=== PATIENT | female | born 1975 | race Caucasian/White ===

== ENCOUNTER 2017-05-25 10:47 | Inpatient (IN) | payer BC ==
[~2017-05-25] VITALS: Ht 175.3 cm; Wt 95.8 kg
[2017-05-25] VITALS (13 sets, daily range): BP systolic 95–121; BP diastolic 50–74; PULSE 66–80; RESP 12–23; TEMP 98.1; Ht 175.3 cm; Wt 95.8 kg
[~2017-05-25 10:47] MED LIST: NITR-58 PO
[2017-05-25] MEDS ORDERED: METOCLOPRAMIDE 10 MG INJ IV STA (11:24)
[2017-05-25] MEDS ORDERED: SOD CHLORIDE 0.9% 1,000 ML IV STA (11:24)
[2017-05-25] MEDS ORDERED: morphine 4 MG/ML VIAL IV STA (11:24)
[2017-05-25] MEDS ORDERED: DIPHENHYDRAMINE 50 MG INJ IV ONE (11:30)
--- NOTE | 2017-05-25 11:46 | ERD ---
ER Documentation Chief Complaint Chief Complaint headache x 2 days, ibuprofen 800mg about an hour ago HPI 41 year old female comes to the emergency room with a headache for 2 weeks, and worsening over the last 2 days. Patient describes a throbbing headache that is moderate to severe, unilateral right side. He states that she has had headaches in the past but this is much more severe. She also states that she was drinking a lot of caffeine and then she stopped drinking caffeinated beverages about 2 weeks ago and this is when the headache started. The patient states ibuprofen seems to help but has not improved very much. She denies any fevers, chills, vomiting. ROS All systems reviewed and are negative except as per history of present illness. Medications Home Meds Active Scripts Nitrofurantoin Monohyd Macrocr* (Macrobid*) 100 Mg Capsr, 100 MG PO BID for 7 Days, CAP Prov:BRANDON LEOS PA-C 02/03/16 Reported Medications [None] No Conflict Check 03/31/12 Allergies Allergies: Coded Allergies: No Known Allergy (Unverified , 02/03/16) PMhx/Soc History of Surgery: No Anesthesia Reaction: No Hx Neurological Disorder: No Hx Respiratory Disorders: No Hx Cardiac Disorders: No Hx Psychiatric Problems: No Hx Miscellaneous Medical Probl: No Hx Alcohol Use: No Hx Substance Use: No Hx Tobacco Use: No Smoking Status: Never smoker Physical Exam Vitals Vital Signs Date Time Temp Pulse Resp B/P Pulse Ox O2 Delivery O2 Flow Rate FiO2 05/25/17 10:50 98.2 77 18 146/84 100 Physical Exam General: Well-developed, well-nourished. The patient appears in no acute distress. HEENT: Head is normocephalic, atraumatic. No scleral icterus. Pupils are equal , round, and reactive. Oral mucous membranes are moist. No pharyngeal erythema. Neck: Supple. Nontender. Lungs: Clear to auscultation. Normal air movement. Heart: Regular rate and rhythm. S1 and S2 are normal. No murmurs, gallops, or rubs. Abdomen: Soft, nontender, nondistended. Bowel sounds are normoactive. Extremities: No clubbing or cyanosis. Normal pulses. Moving extremities x 4. No weakness. Neuro: M/S: Alert and oriented Face: EOMI, CN II-XII grossly intact Motor: Normal strength throughout Sensation: Normal sensation throughout Speech: Normal Cerebel: Normal coordination Normal gait Normal finger to nose DTR: 2+ and symmetric upper/lower extremities Skin: Normal turgor. No rash or lesions. Results 24 hrs Current Medications Medications (Trade) Dose Ordered Sig/Kallie Route PRN Reason Start Time Stop Time Status Last Admin Dose Admin Sodium Chloride (NS) 1,000 ml @ 1,000 mls/hr Q1H STAT IV 05/25/17 11:24 05/25/17 12:23 DC 05/25/17 12:05 Metoclopramide HCl (Reglan) 10 mg ONCE STAT IV 05/25/17 11:24 05/25/17 11:29 DC 05/25/17 12:05 Morphine Sulfate (morphine) 4 mg ONCE STAT IV 05/25/17 11:24 05/25/17 11:29 DC 05/25/17 12:05 Diphenhydramine HCl (Benadryl) 12.5 mg ONCE ONCE IV 05/25/17 11:30 05/25/17 11:31 DC 05/25/17 12:05 DIAGNOSTIC IMAGING REPORT Patient: DOROTA MARAVILLA : 1975 Age: 41 Sex: F MR #: [id number] DOS: 05/25/17 1124 Ordering MD: LEANNE GRAFF PA-C Location: [facility] Room/Bed: PROCEDURE: CT Brain without contrast. CLINICAL INDICATION: Headaches. TECHNIQUE: A CT of the brain was performed on multidetector high-resolution CT scanner utilizing axial sections from the skull base through the vertex without contrast. One or more of the following dose reduction techniques were used: Automated exposure control, Adjustment of the mA and/or kV according to patient size, and/or use of iterative reconstruction technique. DICOM images are available. DOSE: CTDI = 45 mGy and the DLP = 720 mGy-cm. COMPARISON: None available FINDINGS: 5.7 x 4.0 ill defined right parietal parenchymal lesion with marked right posterior frontal, parietal and right posterior temporal vasogenic edema. Ill- defined hypoattenuation extends to the right thalamus and corpus callosum. There is resulting 8 millimeters leftward midline shift. There is compression of the right lateral ventricle and third ventricle. No significant opacification of the visualized paranasal sinuses or mastoids. IMPRESSION: 5.7 centimeter ill-defined right parietal lesion with marked surrounding vasogenic edema and 8 mm leftward midline shift. Differential considerations include brain mass or brain abscess. Recommend MRI brain with and without contrast for further evaluation. A call report was made to LULA BRIGHT, at 05/25/2017 12:16:20 PM. RPTAT: AA .Vini Ribeiro MD, MD Date Time Electronically viewed and signed by .Vini Ribeiro MD, on 05/25/2017 12:17 .T/ CC: LEANNE GRAFF PA-C Procedures/MDM -year-old female presents with a headache for 2 weeks, she states that has become severe over the last [address] scan of the head shows a 5.7 cm area on the right parietal region showing a mass versus to abscess with midline shift. This patient's CT scan was discussed with Dr. Payne, who will make arrangements for admission and neurosurgery consultation. Labs, MRI were ordered. Departure Diagnosis: Primary Impression: Headache Condition: Serious LEANNE GRAFF PA-C May 25, 2017 11:46
--- NOTE | 2017-05-25 12:17 | RADRPT ---
PROCEDURE: CT Brain without contrast. CLINICAL INDICATION: Headaches. TECHNIQUE: A CT of the brain was performed on multidetector high-resolution CT scanner utilizing a xial sections from the skull base through the vertex without contrast. One or more of the following dose reduction techniques were used: Automated exposure control, Adjustment of the mA and/or kV acc ording to patient size, and/or use of iterative reconstruction technique. DICOM images are available . DOSE: CTDI = 45 mGy and the DLP = 720 mGy-cm. COMPARISON: None available FINDINGS: 5.7 x 4.0 ill defined right parietal parenchymal lesion with marked right posterior frontal, parieta l and right posterior temporal vasogenic edema. Ill-defined hypoattenuation extends to the right nazario lamus and corpus callosum. There is resulting 8 millimeters leftward midline shift. There is mervat cayla of the right lateral ventricle and third ventricle. No significant opacification of the visuali zed paranasal sinuses or mastoids. IMPRESSION: 5.7 centimeter ill-defined right parietal lesion with marked surrounding vasogenic edema and 8 mm le ftward midline shift. Differential considerations include brain mass or brain abscess. Recommend MRI brain with and without contrast for further evaluation. A call report was made to LULA BRIGHT at 05/25/2017 12:16:20 PM. RPTAT: AA .Vini Ribeiro MD, MD Date Time Electronically viewed and signed by .Vini Ribeiro MD, MD on 05/25/2017 12:17 .T/
[2017-05-25] MEDS ORDERED: HYDROmorphONE 1 MG/ML SYG IV STA (12:43)
[2017-05-25 12:54] LABS: BASOPHIL # 0.1 10^3/ul (0.0-0.1); BASOPHILS % 0.4 % (0.0-2.0); EOSINOPHILS # 0.1 10^3/ul (0.0-0.5); EOSINOPHILS % 0.5 % (0.0-7.0); HEMATOCRIT 33.5 % (37.0-47.0); HEMOGLOBIN 10.7 g/dl (12.0-16.0); LYMPHOCYTES # 1.1 10^3/ul (0.8-2.9); LYMPHOCYTES % 7.3 % (15.0-51.0); MEAN CORPUSCULAR HEMOGLOBIN 29.9 pg (29.0-33.0); MEAN CORPUSCULAR HGB CONC 31.9 g/dl (32.0-37.0); MEAN CORPUSCULAR VOLUME 93.6 fl (82.0-101.0); MEAN PLATELET VOLUME 9.4 fl (7.4-10.4); MONOCYTE # 0.9 10^3/ul (0.3-0.9); MONOCYTES % 6.1 % (0.0-11.0); NEUTROPHIL # 12.9 10^3/ul (1.6-7.5); NEUTROPHILS % 85.2 % (39.0-77.0); PLATELET COUNT 435 10^3/UL (140-415); RED BLOOD COUNT 3.58 10^6/ul (4.20-5.40); RED CELL DISTRIBUTION WIDTH 11.6 % (11.5-14.5); WHITE BLOOD COUNT 15.1 10^3/ul (4.8-10.8)
[2017-05-25 13:03] LABS: ADD UMIC YES; UR ASCORBIC ACID NEGATIVE (NEGATIVE); UR BACTERIA FEW /HPF (NONE SEEN); UR BILIRUBIN (Dip) NEGATIVE (NEGATIVE); UR BLOOD (Dip) 2+ mg/dL (NEGATIVE); UR CLARITY SLIGHTLY CLOUDY (CLEAR); UR COLOR YELLOW (YELLOW); UR GLUCOSE (Dip) NEGATIVE (NEGATIVE); UR KETONES (Dip) NEGATIVE (NEGATIVE); UR LEUKOCYTE ESTERASE (Dip) 1+ Leu/ul (NEGATIVE); UR MUCUS FEW /HPF (NONE SEEN); UR NITRITE (Dip) NEGATIVE (NEGATIVE); UR RBC 3 /HPF (0-5); UR SPECIFIC GRAVITY (Dip) 1.016 (1.003-1.030); UR SQUAMOUS EPITHELIAL CELL FEW /HPF (FEW); UR TOTAL PROTEIN (Dip) NEGATIVE (NEGATIVE); UR UROBILINOGEN (Dip) NEGATIVE (NEGATIVE)
[2017-05-25 13:13] LABS: INR 1.02; PROTIME 13.4 Sec (12.2-14.2)
[2017-05-25 13:14] LABS: PARTIAL THROMBOPLASTIN TIME 37.6 Sec (25.0-35.0)
[2017-05-25 13:15] LABS: ALBUMIN/GLOBULIN RATIO 1.11; BILIRUBIN,INDIRECT 0.3 mg/dl (0-1.1); BILIRUBIN,TOTAL 0.3 mg/dl (0.2-1.3); CALCIUM 8.6 mg/dl (8.4-10.2); CREATININE 0.74 mg/dl (0.44-1.00); POTASSIUM 4.1 mmol/L (3.5-5.1); TOTAL PROTEIN 7.6 g/dl (6.1-8.1)
[2017-05-25] MEDS ORDERED: LEVETIRACETAM 500 MG (PMX) 100 ML IVPB ONE (13:30)
[2017-05-25] MEDS ORDERED: ONDANSETRON 4 MG INJ IV STA (15:38)
[2017-05-25] MEDS ORDERED: ALBUTEROL/IPRATROPIUM (NEB) 3 ML AMP HHN PRN (16:00)
[2017-05-25] MEDS ORDERED: hydrALAzine 20 MG INJ IV PRN (16:00)
[2017-05-25] MEDS ORDERED: TRIMETHOBENZAMIDE 100 MG/ML VIAL IM PRN (16:00)
[2017-05-25] MEDS ORDERED: HYDROCODONE/APAP (5/325) TAB PO PRN (16:00)
[2017-05-25] MEDS ORDERED: LORAZEPAM 2 MG INJ IV PRN (16:00)
[2017-05-25] MEDS ORDERED: NITROGLYCERIN (SL) 0.4 MG TAB SL PRN (16:00)
[2017-05-25] MEDS ORDERED: ONDANSETRON 4 MG INJ IV PRN (16:00)
[2017-05-25] MEDS ORDERED: morphine 2 MG INJ IV PRN (16:00)
[2017-05-25] MEDS ORDERED: NA PHOSPHATE/BIPHOS 133 ML ENEMA PR PRN (16:00)
[2017-05-25] MEDS ORDERED: ACETAMINOPHEN 325 MG TAB PO PRN (16:00)
[2017-05-25] MEDS ORDERED: NACL 0.9% 3 ML SYG IV SCH (16:00)
--- NOTE | 2017-05-25 17:01 | HP ---
DATE OF ADMISSION: 05/25/2017 CHIEF COMPLAINT: Headache and vomiting. HISTORY OF PRESENT ILLNESS: A 41-year-old female, no significant past medical history, who presents with headache symptoms. She says her symptoms she believes began about 2 weeks ago when she says she took too much caffeine and felt "weird". Although she noticed some migraine-type of headache symptoms occurring more prominently over the last 2 days, although she denies history of migraines. She did have one episode of vomiting, nonbilious, nonbloody, today. She had been taking ibuprofen for the last few days with no relief in her symptoms, so she decided to come into the ER. She denied any night sweats. She did say she has been having some decreased appetite feeling for the last 2 weeks but has been eating her meals regularly. She does state also 15 pounds weight loss in the last month, partially intentional as she has been trying to lose weight. Denied any abdominal pain. She did have some subjective fevers and chills, as well, but no diarrhea or constipation. No upper or lower GI bleeding. No chest pain or shortness of breath. When she came in, she had imaging study of the brain that did show a 5.7 cm ill-defined right parietal lesion with marked surrounding vasogenic edema and 8 mm leftward midline shift. With differential considerations including brain mass or brain abscess, an MRI of the brain was ordered and the ER team did call the neurosurgeon who came and evaluated the patient, as well. PAST MEDICAL HISTORY: As above. ALLERGIES: NO KNOWN DRUG ALLERGIES. MEDICATIONS: Ibuprofen p.r.n. lately. PAST SURGICAL HISTORY: None. SOCIAL HISTORY: Negative for smoking, drinking, IV drug abuse. FAMILY HISTORY: Mother had mitral valve prolapse. Father had some kind of colon resection, she is not sure why. Her paternal grandmother did have a history of colon cancer. She has no siblings. PHYSICAL EXAMINATION: VITAL SIGNS: Stable. GENERAL: Shows the patient lying in bed, answers questions appropriately, no acute distress. HEENT: Pupils equal, round, react to light. Extraocular muscles intact. NECK: Supple. No thyromegaly. LUNGS: Clear to auscultation bilaterally. CARDIOVASCULAR: S1, S2 heard. No rubs, gallops. ABDOMEN: Soft, nontender, nondistended. Normal bowel sounds. No rebound or guarding. MUSCULOSKELETAL: No lower extremity edema bilaterally. NEUROLOGIC: No focal deficits. LABORATORY DATA: WBC 15.1, hemoglobin 10.7, hematocrit 33.5, platelets 435. Comprehensive metabolic panel is normal. UA shows 1+ leukocyte esterase positive. Coags are normal. We mentioned the head CT results. ASSESSMENT/PLAN: A 41-year-old female coming in with headache symptoms getting worse over the last 2 days and also vomiting symptoms with brain mass found on imaging studies. 1. Headache and vomiting, again likely secondary to the patient's imaging studies of the brain showing brain mass, unclear what this could be at this time. Cannot rule out abscess versus mass such as malignancy, possibly. Again admit patient to the intensive care unit, do neuro checks every 4 hours, avoid anticoagulants for now. Check TSH, A1c, lipid panel. Follow up recommendations from neurosurgery team. They have already evaluated the patient and put the patient on Decadron IV q.6 hours and also Keppra, as well. The patient not having any signs of any seizure activity. Plan is for possible craniotomy in the next 24-48 hours, as well, to further investigate what this could. Do IV fluids, as well. 2. Leukocytosis. Again, patient having some subjective fevers at home. UA is positive for leukocyte esterase, so signs of UTI. Will put the patient on Rocephin for now. 3. Nausea and vomiting, again likely secondary to number 1. Antiemetics, as well. 4. Gastrointestinal prophylaxis. Pepcid. 5. Deep vein thrombosis prophylaxis. SCDs. Dictated By: Jayme Marroquin MD /trini/lainey /Document#: [id number]
[2017-05-25] MEDS: DEXAMETHASONE 4 MG/ML 1 ML INJ IV SCH ×2 (17:27→23:35)
[2017-05-25] MEDS: CEFTRIAXONE 1 GM/50 ML (PMX) 50 ML IVPB SCH (17:28)
[2017-05-25] MEDS: HYDROmorphONE 1 MG/ML SYG IV PRN (17:57)
--- NOTE | 2017-05-25 19:39 | RADRPT ---
PROCEDURE: MR Brain with and without contrast. CLINICAL INDICATION: Headache, abnormal CT examination TECHNIQUE: An MRI of the brain was performed utilizing the following sequences: Axial T1, axial T 2, axial FLAIR, coronal gradient echo, sagittal T1 FLAIR, diffusion weighted imaging, and ADC map. P ostcontrast axial and coronal images were obtained after administration of 10 cc of Magnevist. COMPARISON: CT of the same day FINDINGS: There is a heterogeneous mass overlying or within the right posterior parietal lobe and occipital lo be, measuring up to 5.9 x 5.0 by 3.4 cm CC by AP by transverse. There is septated narrowing internal enhancement and peripheral enhancement. There is mild diffusion restriction involving enhancing por tions of the lesion. There is questionable associated minimal dural thickening and enhancement invol ving the posterior right falx. There is adjacent T2 hyperintensity and effacement of sulci involving overlying right parietal lobe, occipital lobe, temporal lobe, and posterior frontal lobe, with exte nsion slightly across midline within the splenium of the corpus callosum. This appears consistent wi th vasogenic edema. There is partial effacement of the right lateral ventricle, and midline shift to the left measuring up to 9 mm. There is no intracranial hemorrhage. There is no evidence of acute infarct The sella and suprasellar cistern appear within normal limits. The brainstem and posterior fossa ar e normal in configuration. The orbital soft tissue contents are unremarkable. Paranasal sinuses are clear. IMPRESSION: 1. Complex heterogeneous mass within or overlying the right parietal lobe and occipital lobe, up to 5.9 x 5.0 x 3.4 cm. 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 A complex extra-axial mass such as an atypical appearing meningioma is otherwise possible . 2. Extensive adjacent vasogenic edema, and/or infiltrating tumor, involving the right parietal lobe , occipital lobe, temporal lobe, and frontal lobe, with slight extension to the splenium of the [place] callosum across midline. 3. Midline shift to the left, 9 mm. Partial effacement of the posterior right lateral ventricle. RPTAT: HBST .Sunny Barton MD, MD Date Time Electronically viewed and signed by .Sunny Barton MD, on 05/25/2017 15:50 .T/
[2017-05-25] MEDS: FAMOTIDINE 20 MG INJ IV SCH (21:00)
[2017-05-25] MEDS: LEVETIRACETAM 500 MG (PMX) 100 ML IVPB SCH (21:56)
[2017-05-25] MEDS: SOD CHLORIDE 0.45% 1,000 ML IV SCH (21:57)
[2017-05-26] VITALS (31 sets, daily range): BP systolic 85–132; BP diastolic 44–81; PULSE 60–94; RESP 11–32
[2017-05-26] MEDS: DEXAMETHASONE 4 MG/ML 1 ML INJ IV SCH ×4 (06:07→23:40)
[2017-05-26] MEDS: SOD CHLORIDE 0.45% 1,000 ML IV SCH ×2 (06:07→11:36)
[2017-05-26] MEDS: HYDROmorphONE 1 MG/ML SYG IV PRN ×2 (06:08→06:55)
[2017-05-26 06:09] LABS: BASOPHILS % 0.1 % (0.0-2.0); HEMOGLOBIN 12.3 g/dl (12.0-16.0); LYMPHOCYTES # 0.9 10^3/ul (0.8-2.9); LYMPHOCYTES % 5.2 % (15.0-51.0); MEAN CORPUSCULAR HEMOGLOBIN 29.6 pg (29.0-33.0); MEAN CORPUSCULAR HGB CONC 32.4 g/dl (32.0-37.0); MEAN CORPUSCULAR VOLUME 91.3 fl (82.0-101.0); MEAN PLATELET VOLUME 9.2 fl (7.4-10.4); MONOCYTE # 0.2 10^3/ul (0.3-0.9); MONOCYTES % 1.4 % (0.0-11.0); NEUTROPHIL # 15.6 10^3/ul (1.6-7.5); NEUTROPHILS % 92.8 % (39.0-77.0); PLATELET COUNT 510 10^3/UL (140-415); RED BLOOD COUNT 4.16 10^6/ul (4.20-5.40); RED CELL DISTRIBUTION WIDTH 11.4 % (11.5-14.5); WHITE BLOOD COUNT 16.8 10^3/ul (4.8-10.8)
[2017-05-26 06:42] LABS: CALCIUM 9.7 mg/dl (8.4-10.2); CREATININE 0.62 mg/dl (0.44-1.00); MAGNESIUM 2.1 mg/dl (1.7-2.5); PHOSPHORUS 3.7 mg/dl (2.5-4.9); POTASSIUM 5.3 mmol/L (3.5-5.1)
[2017-05-26 07:28] LABS: THYROID STIMULATING HORMONE 0.19 MIU/L (0.465-4.680)
[2017-05-26] MEDS: FAMOTIDINE 20 MG INJ IV SCH ×2 (08:45→21:00)
[2017-05-26] MEDS: LEVETIRACETAM 500 MG (PMX) 100 ML IVPB SCH ×2 (08:46→21:54)
[2017-05-26] MEDS ORDERED: FAMOTIDINE 20 MG INJ IV SCH (09:00)
--- NOTE | 2017-05-26 11:44 | PN ---
Date/Time of Note Date/Time of Note DATE: 05/26/17 TIME: 11:39 Assessment/Plan VTE Prophylaxis VTE Prophylaxis Intervention: SCD's Lines/Catheters IV Catheter Type (from [facility]): Peripheral IV Assessment/Plan Chief Complaint/Hosp Course ASSESSMENT/PLAN: A 41-year-old female coming in with headache symptoms getting worse over the last 2 days and also vomiting symptoms with brain mass found on imaging studies. 1. Headache and vomiting - again likely secondary to the patient's imaging studies of the brain showing brain mass, unclear what this could be at this time. Cannot rule out abscess versus mass such as malignancy, possibly. -Continue care in intensive care unit, do neuro checks every 4 hours, avoid anticoagulants for now. Follow-up TSH, A1c, lipid panel. -Follow up recommendations from neurosurgery team. -Decadron IV q.6 hours and also Keppra, as well. - For likely craniotomy in the next 24 hours 2. Leukocytosis. Again, patient having some subjective fevers at home. UA is positive for leukocyte esterase, so signs of UTI. -2 new Rocephin for now. 3. Nausea and vomiting, again likely secondary to number 1. Antiemetics, as well. 4. Gastrointestinal prophylaxis. Pepcid. 5. Deep vein thrombosis prophylaxis. SCDs. Critical care time spent on patient care today equals 45 minutes. Problems: Subjective 24 Hr Interval Summary Free Text/Dictation Patient seen by neurosurgery team, scheduled for craniotomy tomorrow morning. No headache or vomiting symptoms presently. MRI of the brain performed yesterday as well. Exam/Review of Systems Vital Signs Vitals Vital Signs Date Time Temp Pulse Resp B/P Pulse Ox O2 Delivery O2 Flow Rate FiO2 05/26/17 10:00 86 18 99/62 100 Room Air 05/26/17 08:00 98.1 Intake and Output 05/25/17 05/25/17 05/26/17 14:59 22:59 06:59 Intake Total 690 ml 625 ml Balance 690 ml 625 ml Exam GENERAL: Shows the patient lying in bed, answers questions appropriately, no acute distress. HEENT: Pupils equal, round, react to light. Extraocular muscles intact. NECK: Supple. No thyromegaly. LUNGS: Clear to auscultation bilaterally. CARDIOVASCULAR: S1, S2 heard. No rubs, gallops. ABDOMEN: Soft, nontender, nondistended. Normal bowel sounds. No rebound or guarding. MUSCULOSKELETAL: No lower extremity edema bilaterally. NEUROLOGIC: No focal deficits. Results Result Diagram: 05/26/17 0547 05/26/17 0547 Results 24 hrs Laboratory Tests Test 05/25/17 12:25 05/25/17 12:30 05/26/17 05:47 White Blood Count 15.1 #H 16.8 H Red Blood Count 3.58 L 4.16 L Hemoglobin 10.7 L 12.3 Hematocrit 33.5 L 38.0 Mean Corpuscular Volume 93.6 91.3 Mean Corpuscular Hemoglobin 29.9 29.6 Mean Corpuscular Hemoglobin Concent 31.9 L 32.4 Red Cell Distribution Width 11.6 11.4 L Platelet Count 435 H 510 H Mean Platelet Volume 9.4 # 9.2 Neutrophils % 85.2 H 92.8 H Lymphocytes % 7.3 L 5.2 L Monocytes % 6.1 1.4 Eosinophils % 0.5 0.0 Basophils % 0.4 0.1 Nucleated Red Blood Cells % 0.0 0.0 Neutrophils # 12.9 H 15.6 H Lymphocytes # 1.1 0.9 Monocytes # 0.9 0.2 L Eosinophils # 0.1 0.0 Basophils # 0.1 0.0 Nucleated Red Blood Cells # 0.0 0.0 Prothrombin Time 13.4 Prothrombin Time Ratio 1.0 INR International Normalized Ratio 1.02 Activated Partial Thromboplast Time 37.6 H Sodium Level 138 143 Potassium Level 4.1 5.3 H Chloride Level 102 101 Carbon Dioxide Level 24 30 Anion Gap 16 17 H Blood Urea Nitrogen 9 9 Creatinine 0.74 0.62 Glucose Level 95 115 Lactic Acid Level 1.1 Calcium Level 8.6 9.7 Total Bilirubin 0.3 Direct Bilirubin 0.00 Indirect Bilirubin 0.3 Aspartate Amino Transf (AST/SGOT) 20 Alanine Aminotransferase (ALT/SGPT) 31 Alkaline Phosphatase 81 Total Protein 7.6 Albumin 4.0 Globulin 3.60 H Albumin/Globulin Ratio 1.11 Free Thyroxine 1.44 Serum HCG, Qualitative NEGATIVE Urine Color YELLOW Urine Clarity SLIGHTLY CLOUDY A Urine pH 5.0 Urine Specific [place] 1.016 Urine Ketones NEGATIVE Urine Nitrite NEGATIVE Urine Bilirubin NEGATIVE Urine Urobilinogen NEGATIVE Urine Leukocyte Esterase 1+ H Urine Microscopic RBC 3 Urine Microscopic WBC 8 H Urine Squamous Epithelial Cells FEW Urine Bacteria FEW A Urine Mucus FEW A Urine Hemoglobin 2+ H Urine Glucose NEGATIVE Urine Total Protein NEGATIVE Hemoglobin A1c 4.6 Phosphorus Level 3.7 Magnesium Level 2.1 Triglycerides Level 48 Cholesterol Level 135 LDL Cholesterol, Calculated 80 HDL Cholesterol 45 Cholesterol/HDL Ratio 3.0 Thyroid Stimulating Hormone (TSH) 0.190 L Medications Medications Current Medications Levetiracetam (Keppra 500 Mg/ 100ml (Pmx)) 100 ml @ 400 mls/hr BID IVPB Last administered on 05/26/17 08:46; Admin Dose 400 MLS/HR; Start 05/25/17 at 21: 00 Dexamethasone (Decadron) 4 mg Q6 IV Last administered on 05/26/17 11:33; Admin Dose 4 MG; Start 05/25/17 at 15:30 Famotidine (Pepcid Iv) 20 mg BID IV ; Start 05/25/17 at 21:00 Ondansetron HCl (Zofran Inj) 8 mg Q6H PRN IV NAUSEA AND/OR VOMITING; Start at 16:00 Acetaminophen (Tylenol Tab) 650 mg Q6H PRN PO PAIN LEVEL 1-3 OR FEVER; Start 05/25/17 at 16:00 Acetaminophen/ Hydrocodone Bitart ([place] (5/325)) 1 tab Q6H PRN PO MODERATE PAIN LEVEL 4-6; Start 05/25/17 at 16:00 Morphine Sulfate (morphine) 2 mg Q4H PRN IV SEVERE PAIN LEVEL 7-10; Start at 16:00 Docusate Sodium (Colace) 100 mg Q12H PRN PO CONSTIPATION; Start 05/25/17 at 16 :00 Magnesium Hydroxide (Milk Of Mag) 30 ml DAILY PRN PO CONSTIPATION; Start 05/25 at 16:00 Sodium Biphosphate/ Sodium Phosphate (Fleet Enema) 133 ml DAILY PRN MA CONSTIPATION; Start 05/25/17 at 16:00 Famotidine 20 mg 20 mg DAILY IV ; Start 05/26/17 at 09:00 Sodium Chloride (1/2 NS) 1,000 ml @ 75 mls/hr [id number] IV Last administered on 05/26/17 11:36; Admin Dose 75 MLS/HR; Start 05/25/17 at 15:46 Lorazepam (Ativan) 0.5 mg Q6H PRN IV ANXIETY; Start 05/25/17 at 16:00 Hydralazine HCl 10 mg 10 mg Q6H PRN IV ELEVATED BLOOD PRESSURE; Start at 16:00 Ceftriaxone Sodium (Rocephin) 50 ml @ 100 mls/hr Q24H IVPB Last administered on 05/25/17 17:28; Admin Dose 100 MLS/HR; Start 05/25/17 at 16:00 Nitroglycerin (Nitroglycerin (Sl Tab) 0.4 Mg) 1 tab Q5M PRN SL ANGINA; Start 05/25/17 at 16:00 Trimethobenzamide HCl (Tigan) 200 mg Q6H PRN IM NAUSEA AND/OR VOMITING; Start 05/25/17 at 16:00 Hydromorphone HCl (Dilaudid) 1 mg Q3 PRN IV PAIN LEVEL 8-10 Last administered on 05/26/17 06:08; Admin Dose 1 MG; Start 05/25/17 at 17:30 SELMA GARNER May 26, 2017 11:44
[2017-05-26] MEDS ORDERED: NA POLYST SULFON 15 GM/60 ML BTL PO ONE (12:00)
[2017-05-26] MEDS: CEFTRIAXONE 1 GM/50 ML (PMX) 50 ML IVPB SCH (16:22)
[2017-05-27] VITALS (39 sets, daily range): BP systolic 96–170; BP diastolic 51–83; PULSE 61–108; RESP 14–27
[2017-05-27] MEDS: DEXAMETHASONE 4 MG/ML 1 ML INJ IV SCH ×3 (05:10→17:04)
[2017-05-27 05:24] LABS: BASOPHILS % 0.2 % (0.0-2.0); HEMATOCRIT 36.7 % (37.0-47.0); HEMOGLOBIN 12.2 g/dl (12.0-16.0); LYMPHOCYTES # 0.9 10^3/ul (0.8-2.9); LYMPHOCYTES % 4.6 % (15.0-51.0); MEAN CORPUSCULAR HEMOGLOBIN 30.3 pg (29.0-33.0); MEAN CORPUSCULAR HGB CONC 33.2 g/dl (32.0-37.0); MEAN CORPUSCULAR VOLUME 91.3 fl (82.0-101.0); MEAN PLATELET VOLUME 9.3 fl (7.4-10.4); MONOCYTE # 0.6 10^3/ul (0.3-0.9); MONOCYTES % 3.1 % (0.0-11.0); NEUTROPHIL # 18.2 10^3/ul (1.6-7.5); NEUTROPHILS % 91.4 % (39.0-77.0); PLATELET COUNT 526 10^3/UL (140-415); RED BLOOD COUNT 4.02 10^6/ul (4.20-5.40); RED CELL DISTRIBUTION WIDTH 11.5 % (11.5-14.5); WHITE BLOOD COUNT 19.9 10^3/ul (4.8-10.8)
[2017-05-27 05:52] LABS: CALCIUM 9.6 mg/dl (8.4-10.2); CREATININE 0.63 mg/dl (0.44-1.00); POTASSIUM 4.2 mmol/L (3.5-5.1)
[2017-05-27] MEDS ORDERED: GELATIN SIZE 100 SPONGE ONE (07:39)
[2017-05-27] MEDS ORDERED: BUPIVACAINE 0.5% (SDV) 30 ML INJ ONE (07:39)
[2017-05-27] MEDS ORDERED: THROMBIN 5000 UNIT VIAL ONE (07:39)
[2017-05-27] MEDS ORDERED: BUPIVACAINE 0.5%/EPI (SDV) 30 ML INJ ONE (07:39)
[2017-05-27] MEDS ORDERED: POLYMYXIN/BACITRACIN 1L IRRIG ONE ×2 (07:40→14:35)
[2017-05-27] MEDS ORDERED: LIDOCAINE 0.5% (MDV) 50 ML INJ ONE (07:40)
[2017-05-27] MEDS: SOD CHLORIDE 0.45% 1,000 ML IV SCH ×3 (07:46→19:57)
[2017-05-27] MEDS ORDERED: MIDAZOLAM 1 MG/ML 2 ML INJ ONE (07:53)
[2017-05-27] MEDS ORDERED: PROPOFOL 20 ML ONE ×3 (07:53→10:28)
[2017-05-27] MEDS ORDERED: ROCURONIUM 50 MG INJ ONE (07:53)
[2017-05-27] MEDS ORDERED: CEFAZOLIN 1 GM INJ ONE ×2 (07:53→14:24)
--- NOTE | 2017-05-27 08:08 | CONS ---
Date/Time of Note Date/Time of Note DATE: 05/25/17 TIME: 1900 Assessment/Plan Assessment/Plan Additional Assessment/Plan Date of consultation: 05/25/2017 Requesting physician: Dr. Sunny Kruse with the emergency department. Consulting service: Neurosurgery This is a 41-year-old female in overall good health who has been having headaches for the past 2 weeks. The patient has also felt some fatigue as well as some nausea. She had 1 episode of vomiting earlier today. 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 The patient denies any loss of consciousness, seizures, convulsions or diplopia. She does however say that she has noticed that her vision has not been as good as it used to be over the past several months and she seems to relate this to the fact that her eyeglasses prescription is changing. The patient has also noticed some weakness of her left upper extremity recently. Past medical history: None Allergies: No known drug allergies Outpatient medications: Ibuprofen Past surgical history: None Review of systems: Please see above for pertinent positives or negatives. She denies chest pain or shortness of breath. Social history: The patient denies smoking tobacco, drinking alcoholic beverages or using illicit or recreational drugs. Physical examination: The patient is seen in the emergency department. She is accompanied by her female coworker. She is awake alert and oriented 4. She appears to be in some distress related to her headache. Her face is symmetric. Her tongue is midline. Extraocular movements are intact. Pupils are equally round and reactive to light. The patient appears to have gross left homonymous hemianopsia. The patient has an obvious left pronator drift. Motor strength is 5 minus out of 5 right upper and lower extremities. Motor strength left upper and lower extremities is 4- out of 5 proximally and distally. Sensation to light touch seems to be grossly normal bilateral upper and lower extremities. Gait testing has been deferred per patient request. Deep tendon reflexes are 2+ bilateral upper and lower extremities. There is some left- sided dysmetria. Her language is fluent. Imaging: The patient has received a CT of the head without contrast that shows right-sided supratentorial cortical effacement and some evidence of cerebral edema with an ill-defined area suspicious for a mass in the right parieto- occipital region. There is no evidence of intracranial hemorrhage noted. Assessment/plan: I have discussed the findings in detail with the patient as well as the emergency room physician, Dr. Kruse. The stereotactic MRI of the brain with and without contrast will be done today at my request for further evaluation. The patient will be started on Decadron 4 mg IV every 6 hours. Once the imaging study is done I will discuss the findings in greater detail with the patient. The patient is being admitted to the ICU. ENRIQUE TEJADA MD May 27, 2017 08:08
--- NOTE | 2017-05-27 08:09 | PN ---
Date/Time of Note Date/Time of Note DATE: 05/26/17 TIME: 1300 Assessment/Plan VTE Prophylaxis VTE Prophylaxis Intervention: ambulation Lines/Catheters IV Catheter Type (from Nrs): Peripheral IV Central line still needed: No Urinary Cath still in place: No Assessment/Plan Assessment/Plan Date of progress note: 05/26/2017 The patient is admitted to the ICU. Overall the patient seems to be feeling better now that she's been started on Decadron and receiving pain medications for her headaches. She seems to be quite anxious. Her neurologic exam seems to be unchanged with left-sided hemiparesis and pronator drift as well as a left homonymous any anopsia as yesterday. She is awake alert and oriented 4. Her language is fluent. The patient's parents live in [place] and I have explained the MRI of the brain findings in great detail with the patient as well as her parents whom the patient has put on the speaker phone. The MRI of the brain with and without contrast shows a large right parietal occipital intraparenchymal heterogeneously enhancing mass by the right parasagittal region that goes to midline. This mass appears to be a highly suspicious for primary brain neoplasm. There is also extensive surrounding vasogenic edema that even seems to somewhat across midline and involve the corpus callosum fibers. I have pointed out to the patient and her family about the patient's current neurologic deficits that can be explained by the above image findings. In order to know what this mass is, the patient will require a right parieto- occipital craniotomy that can be done via stereotactic techniques using the stereotactic MRI that has already been obtained. Once the mass is resected, the pathologists will do various types of stainings on the mass and can then tell us about the specific pathology. I have explained the risks and benefits of the above operation with the risks including bleeding, infection, weakness, numbness, paralysis, blindness, comatose state, bowel or bladder dysfunction, cerebrospinal fluid leak, failure of improvement of symptoms, worsening of the symptoms, need for further surgeries including redo craniotomy for resection of the tumor or CSF diversion such as a RIB SAWYER shunt placement as well as those risks associated with surgery and general anesthesia including pneumonia, deep venous thrombosis, pulmonary embolism, heart attack, stroke and/or . Another option which is not a recommended option would be further observation of the mass and continued treatment with glucocorticoids. The patient and her parents fully understand the above discussion and wish for the patient to proceed with the above surgery. The patient's parents will be flying from [place] later today so that they can accompany the patient for surgery tomorrow. We will try to accommodate her as best as we can. ENRIQUE TEJADA MD May 27, 2017 08:09
[2017-05-27] MEDS ORDERED: ALBUMIN HUMAN 5% 250 ML IV PRN (08:30)
[2017-05-27] MEDS ORDERED: METOCLOPRAMIDE 10 MG INJ IV PRN (08:30)
[2017-05-27] MEDS ORDERED: DIPHENHYDRAMINE 50 MG INJ IV PRN (08:30)
[2017-05-27] MEDS ORDERED: LABETALOL HCL 20MG INJ IV PRN (08:30)
[2017-05-27] MEDS ORDERED: MEPERIDINE 25 MG INJ IV PRN (08:30)
[2017-05-27] MEDS ORDERED: hydrALAzine 20 MG INJ IV PRN (08:30)
[2017-05-27] MEDS ORDERED: morphine 10 MG INJ IV PRN (08:30)
[2017-05-27] MEDS ORDERED: FENTAnyl 50 MCG/ML VIAL IV PRN ×3 (08:30)
[2017-05-27] MEDS ORDERED: EPHEDrine SULFATE 50 MG/5 ML SYG IV PRN (08:30)
[2017-05-27] MEDS ORDERED: morphine 4 MG/ML VIAL IV PRN (08:30)
[2017-05-27] MEDS ORDERED: morphine 2 MG INJ IV PRN (08:30)
[2017-05-27] MEDS ORDERED: ONDANSETRON 4 MG INJ IV PRN ×2 (08:30→22:00)
[2017-05-27] MEDS ORDERED: POVIDONE IODINE 10% 28.4 GM OINT ONE (08:43)
[2017-05-27] MEDS: FAMOTIDINE 20 MG INJ IV SCH ×2 (09:00→21:16)
[2017-05-27] MEDS ORDERED: DEXAMETHASONE 4 MG/ML 1 ML INJ ONE (09:02)
[2017-05-27] MEDS ORDERED: LABETALOL HCL 20MG INJ ONE (09:11)
--- NOTE | 2017-05-27 09:59 | PN ---
Date/Time of Note Date/Time of Note DATE: 05/27/17 TIME: 09:58 Assessment/Plan VTE Prophylaxis VTE Prophylaxis Intervention: SCD's Lines/Catheters IV Catheter Type (from [facility]): Peripheral IV Urinary Cath still in place: No Assessment/Plan Chief Complaint/Hosp Course ASSESSMENT/PLAN: A 41-year-old female coming in with headache symptoms getting worse over the last 2 days and also vomiting symptoms with brain mass found on imaging studies. 1. Headache and vomiting - again likely secondary to the patient's imaging studies of the brain showing brain mass, unclear what this could be at this time. Cannot rule out abscess versus mass such as malignancy. -Continue care in intensive care unit, do neuro checks every 4 hours, avoid anticoagulants for now. Follow-up TSH, A1c, lipid panel. -Follow up recommendations from neurosurgery team. -Decadron IV q.6 hours and also Keppra, as well. -for craniotomy today, follow-up post operation recommendations 2. Leukocytosis -in addition to brain mass, UA is positive for leukocyte esterase, so signs of UTI. -Continue Rocephin for now. 3. Nausea and vomiting, again likely secondary to number 1. Antiemetics, as well. 4. Gastrointestinal prophylaxis. Pepcid. 5. Deep vein thrombosis prophylaxis. SCDs. Critical care time spent on patient care today equals 40 minutes. Problems: Subjective 24 Hr Interval Summary Free Text/Dictation No acute events overnight, presently in OR. Exam/Review of Systems Vital Signs Vitals Vital Signs Date Time Temp Pulse Resp B/P Pulse Ox O2 Delivery O2 Flow Rate FiO2 05/27/17 08:00 70 21 133/83 98 Room Air 05/27/17 00:00 98.6 Intake and Output 05/26/17 05/26/17 05/27/17 15:00 23:00 07:00 Intake Total 1642 ml 1692.5 ml 225 ml Balance 1642 ml 1692.5 ml 225 ml Exam PE: -Presently off the floor at surgical procedure. Results Result Diagram: 05/27/17 0502 05/27/17 0502 Results 24 hrs Laboratory Tests Test 05/27/17 05:02 White Blood Count 19.9 H Red Blood Count 4.02 L Hemoglobin 12.2 Hematocrit 36.7 L Mean Corpuscular Volume 91.3 Mean Corpuscular Hemoglobin 30.3 Mean Corpuscular Hemoglobin Concent 33.2 Red Cell Distribution Width 11.5 Platelet Count 526 H Mean Platelet Volume 9.3 Neutrophils % 91.4 H Lymphocytes % 4.6 L Monocytes % 3.1 Eosinophils % 0.0 Basophils % 0.2 Nucleated Red Blood Cells % 0.0 Neutrophils # 18.2 H Lymphocytes # 0.9 Monocytes # 0.6 Eosinophils # 0.0 Basophils # 0.0 Nucleated Red Blood Cells # 0.0 Sodium Level 144 Potassium Level 4.2 Chloride Level 105 Carbon Dioxide Level 29 Anion Gap 14 Blood Urea Nitrogen 12 Creatinine 0.63 Glucose Level 125 Calcium Level 9.6 Medications Medications Current Medications Levetiracetam (Keppra 500 Mg/ 100ml (Pmx)) 100 ml @ 400 mls/hr BID IVPB Last administered on 05/26/17 21:54; Admin Dose 400 MLS/HR; Start 05/25/17 at 21: 00 Dexamethasone (Decadron) 4 mg Q6 IV Last administered on 05/27/17 05:10; Admin Dose 4 MG; Start 05/25/17 at 15:30 Famotidine (Pepcid Iv) 20 mg BID IV ; Start 05/25/17 at 21:00 Ondansetron HCl (Zofran Inj) 8 mg Q6H PRN IV NAUSEA AND/OR VOMITING; Start at 16:00 Acetaminophen (Tylenol Tab) 650 mg Q6H PRN PO PAIN LEVEL 1-3 OR FEVER; Start 05/25/17 at 16:00 Acetaminophen/ Hydrocodone Bitart ([place] (5/325)) 1 tab Q6H PRN PO MODERATE PAIN LEVEL 4-6; Start 05/25/17 at 16:00 Morphine Sulfate (morphine) 2 mg Q4H PRN IV SEVERE PAIN LEVEL 7-10; Start at 16:00 Docusate Sodium (Colace) 100 mg Q12H PRN PO CONSTIPATION; Start 05/25/17 at 16 :00 Magnesium Hydroxide (Milk Of Mag) 30 ml DAILY PRN PO CONSTIPATION; Start 05/25 at 16:00 Sodium Biphosphate/ Sodium Phosphate 133 ml 133 ml DAILY PRN [place] CONSTIPATION; Start 05/25/17 at 16:00 Sodium Chloride (1/2 NS) 1,000 ml @ 75 mls/hr [id number] IV Last administered on 05/26/17 11:36; Admin Dose 75 MLS/HR; Start 05/25/17 at 15:46 Lorazepam (Ativan) 0.5 mg Q6H PRN IV ANXIETY; Start 05/25/17 at 16:00 Hydralazine HCl 10 mg 10 mg Q6H PRN IV ELEVATED BLOOD PRESSURE; Start at 16:00 Ceftriaxone Sodium (Rocephin) 50 ml @ 100 mls/hr Q24H IVPB Last administered on 05/26/17 16:22; Admin Dose 100 MLS/HR; Start 05/25/17 at 16:00 Nitroglycerin (Nitroglycerin (Sl Tab) 0.4 Mg) 1 tab Q5M PRN SL ANGINA; Start 05/25/17 at 16:00 Trimethobenzamide HCl (Tigan) 200 mg Q6H PRN IM NAUSEA AND/OR VOMITING; Start 05/25/17 at 16:00 Hydromorphone HCl (Dilaudid) 1 mg Q3 PRN IV PAIN LEVEL 8-10 Last administered on 05/26/17 06:08; Admin Dose 1 MG; Start 05/25/17 at 17:30 SELMA GARNER May 27, 2017 09:59
[2017-05-27] MEDS ORDERED: PHENYLephrine (100 MCG/ML) 5ML SYG ONE (10:17)
[2017-05-27] MEDS ORDERED: EVAC CONTAINER XX SCH (11:30)
[2017-05-27] MEDS ORDERED: MANNITOL XX SCH (11:30)
[2017-05-27] MEDS ORDERED: PROPOFOL 0 ML ONE (12:52)
[2017-05-27] MEDS ORDERED: PROPOFOL 100 ML ONE (12:55)
[2017-05-27] MEDS ORDERED: ONDANSETRON 4 MG INJ ONE (13:24)
[2017-05-27] MEDS ORDERED: METOCLOPRAMIDE 10 MG INJ ONE (13:24)
[2017-05-27] MEDS ORDERED: PROPOFOL 400 ML ONE (13:57)
[2017-05-27] MEDS ORDERED: POLYMYXIN/BACITRACIN 1L IRRIG IRR ONE (14:27)
[2017-05-27] MEDS ORDERED: HEMOSTATIC MATRIX/ THROMBIN 1 EA SYG ZFS ONE (14:29)
[2017-05-27] MEDS ORDERED: THROMBIN 5000 UNIT VIAL TOP ONE (14:29)
[2017-05-27] MEDS ORDERED: ACETAMINOPHEN 1000MG/100ML IV 100 ML ONE (15:03)
[2017-05-27] MEDS ORDERED: SUGAMMADEX SODIUM 200 MG/2 ML VIAL IV ONE (15:03)
[2017-05-27] MEDS ORDERED: BACITRACIN/POLYMYXIN 28.35 GM OINT TOP ONE (15:12)
[2017-05-27] MEDS ORDERED: HEMOSTATIC MATRIX SYG ZFS ONE (15:20)
[2017-05-27] MEDS: LEVETIRACETAM 500 MG (PMX) 100 ML IVPB SCH (16:33)
--- NOTE | 2017-05-27 16:54 | SIPON ---
Date/Time of Note Date/Time of Note DATE: 05/27/17 TIME: 16:50 Operative Report Preoperative Diagnosis Right parieto-occipital intraparenchymal tumor Postoperative Diagnosis Right parieto-occipital intraparenchymal tumor Operation/Procedure Performed right Right parieto-occipital stereotactic craniotomy for resection of tumor Surgeon see signature line rn first assist N/A Anesthesia: general Estimated blood loss: 50 - 100 ml's Transfusion Required none Specimen Right Right parieto-occipital intraprenchymal tumor Grafts/Implants none Complications none ENRIQUE TEJADA MD May 27, 2017 16:54
[2017-05-27] MEDS: CEFTRIAXONE 1 GM/50 ML (PMX) 50 ML IVPB SCH (17:04)
--- NOTE | 2017-05-27 18:34 | RADRPT ---
PROCEDURE: CT Brain without contrast. CLINICAL INDICATION: Tumor resection. TECHNIQUE: A multiplanar CT of the brain was performed on a CT scanner utilizing axial imaging fro m the skull base through the vertex without IV contrast. The CTDIvol is 43.48 mGy and the DLP is 72 0.23 mGycm. One or more of the following dose reduction techniques were utilized: Automated exposu re control, adjustment of the mA and/or kV according to patient size, use of iterative reconstructio n technique. DICOM images are available. COMPARISON: MR brain and CT brain 05/25/2017 . FINDINGS: Right parietal craniotomy and burrholes with underlying surgical resection cavity compatible with tu mor resection in the right parafalcine parietal lobe. Postsurgical changes with hemorrhage and pneum ocephalus within the resection cavity and right the parietal vertex. Surgical drain in place . Posts urgical changes of the scalp. Diffuse vasogenic edema/tumor infiltration throughout the right frontal, temporal, parietal, and occ ipital lobes as well as splenium of the corpus callosum. Mass effect on the right lateral ventricle 8 mm [id number] midline shift. No hydrocephalus. No left hemispheric parenchymal lesion. The basal cisterns, posterior fossa contents, brainstem, craniocervical junction, orbits, pituitary axis, paranasal sinuses, mastoid air cells, and calvarium are unremarkable. IMPRESSION: 1. Right parietal craniotomy defect with underlying right medial parietal resection cavity with pos toperative changes, pneumocephalus, and surgical drain in place. 2. Extensive vasogenic edema and/or tumor infiltration throughout the right parietal, occipital, te mporal, and frontal lobe with slight extension into the splenium of the corpus callosum. 3. Persistent mass effect on the right lateral ventricle and 8 mm of [id number] midline shift. N o transtentorial or uncal herniation at this time. 4. MRI is more sensitive for acute ischemic injury. RPTAT:AAJJ Physician Krystian Date Time Electronically viewed and signed by Physician Krystian on 05/27/2017 18:33 NACHO/
[2017-05-27] MEDS: HYDROmorphONE 1 MG/ML SYG IV PRN ×2 (18:41→21:24)
[2017-05-27] MEDS ORDERED: HYDROCODONE/APAP (5/325) TAB PO PRN (22:00)
[2017-05-28] VITALS (46 sets, daily range): BP systolic 117–160; BP diastolic 55–79; PULSE 68–94; RESP 12–27
[2017-05-28] MEDS: DEXAMETHASONE 4 MG/ML 1 ML INJ IV SCH ×5 (00:30→23:40)
[2017-05-28] MEDS: LEVETIRACETAM 500 MG (PMX) 100 ML IVPB SCH ×3 (00:30→21:43)
[2017-05-28] MEDS: SOD CHLORIDE 0.45% 1,000 ML IV SCH (04:06)
[2017-05-28] MEDS: HYDROmorphONE 1 MG/ML SYG IV PRN ×3 (04:20→19:59)
[2017-05-28 06:32] LABS: ABNORMAL IP MESSAGE 1; BASOPHILS % 0.1 % (0.0-2.0); HEMATOCRIT 31.5 % (37.0-47.0); HEMOGLOBIN 10.1 g/dl (12.0-16.0); LYMPHOCYTES # 1.2 10^3/ul (0.8-2.9); MEAN CORPUSCULAR HEMOGLOBIN 29.5 pg (29.0-33.0); MEAN CORPUSCULAR HGB CONC 32.1 g/dl (32.0-37.0); MEAN CORPUSCULAR VOLUME 92.1 fl (82.0-101.0); MEAN PLATELET VOLUME 9.8 fl (7.4-10.4); MONOCYTE # 1.6 10^3/ul (0.3-0.9); MONOCYTES % 8.3 % (0.0-11.0); NEUTROPHIL # 16.5 10^3/ul (1.6-7.5); NEUTROPHILS % 85.1 % (39.0-77.0); PLATELET COUNT 487 10^3/UL (140-415); RED BLOOD COUNT 3.42 10^6/ul (4.20-5.40); RED CELL DISTRIBUTION WIDTH 11.9 % (11.5-14.5); WHITE BLOOD COUNT 19.4 10^3/ul (4.8-10.8)
[2017-05-28 06:36] LABS: POSITIVE DIFF @See below
[2017-05-28 06:52] LABS: CALCIUM 8.5 mg/dl (8.4-10.2); CREATININE 0.56 mg/dl (0.44-1.00); POTASSIUM 3.8 mmol/L (3.5-5.1)
[2017-05-28] MEDS: FAMOTIDINE 20 MG INJ IV SCH ×2 (08:26→21:00)
--- NOTE | 2017-05-28 09:27 | PN ---
Date/Time of Note Date/Time of Note DATE: 05/28/17 TIME: 09:19 Assessment/Plan VTE Prophylaxis VTE Prophylaxis Intervention: SCD's Lines/Catheters IV Catheter Type (from Nrs): A Line Urinary Cath still in place: Yes Reason Cath still needed: urinary retention Assessment/Plan Chief Complaint/Hosp Course S: Patient had craniotomy performed yesterday by neurosurgery. Feeling a bit anxious, still complaining of some visual changes, otherwise tolerating diet, no acute events overnight. O: VS (see below) PE: GENERAL: patient lying in bed, answers questions appropriately, drain in place , no acute distress. HEENT: Pupils equal, round, react to light. Extraocular muscles intact. NECK: Supple. No thyromegaly. LUNGS: Clear to auscultation bilaterally. CARDIOVASCULAR: S1, S2 heard. No rubs, gallops. ABDOMEN: Soft, nontender, nondistended. Normal bowel sounds. No rebound or guarding. MUSCULOSKELETAL: No lower extremity edema bilaterally. NEUROLOGIC: No focal deficits. ASSESSMENT/PLAN: A 41-year-old female coming in with headache symptoms getting worse over the last 2 days and also vomiting symptoms with brain mass found on imaging studies. 1. Headache and vomiting - again likely secondary to the patient's imaging studies of the brain showing brain mass, S/P right parieto-occipital stereotactic craniotomy for resection of tumor postop day #1. There is concern this could be GBM. Biopsy results are pending however. -Continue care in intensive care unit, do neuro checks every 4 hours, avoid anticoagulants for now. -Follow up recommendations from neurosurgery team. -Decadron IV q.6 hours and Keppra, as well, PT eval. -Monitor drainage site 2. Leukocytosis -in addition to brain mass, UA is positive for leukocyte esterase, so signs of UTI. Patient also on IV steroids. -Continue Rocephin for now. 3. Nausea and vomiting, again likely secondary to number 1. Antiemetics, as well. 4. Gastrointestinal prophylaxis. Pepcid. 5. Deep vein thrombosis prophylaxis. SCDs. Critical care time spent on patient care today equals 40 minutes. Problems: Exam/Review of Systems Vital Signs Vitals Vital Signs Date Time Temp Pulse Resp B/P Pulse Ox O2 Delivery O2 Flow Rate FiO2 05/28/17 08:00 88 05/28/17 07:00 18 145/65 100 Room Air 05/28/17 04:00 98.6 05/27/17 21:00 2.0 Intake and Output 05/27/17 05/27/17 05/28/17 15:00 23:00 07:00 Intake Total 75 ml 3350 ml 900 ml Output Total 2370 ml 1200 ml Balance 75 ml 980 ml -300 ml Results Result Diagram: 05/28/17 0536 05/28/17 0536 Results 24 hrs Laboratory Tests Test 05/28/17 05:36 White Blood Count 19.4 H Red Blood Count 3.42 L Hemoglobin 10.1 L Hematocrit 31.5 L Mean Corpuscular Volume 92.1 Mean Corpuscular Hemoglobin 29.5 Mean Corpuscular Hemoglobin Concent 32.1 Red Cell Distribution Width 11.9 Platelet Count 487 H Mean Platelet Volume 9.8 Neutrophils % 85.1 H Lymphocytes % 6.0 L Monocytes % 8.3 Eosinophils % 0.0 Basophils % 0.1 Nucleated Red Blood Cells % 0.0 Neutrophils # 16.5 H Lymphocytes # 1.2 Monocytes # 1.6 H Eosinophils # 0.0 Basophils # 0.0 Nucleated Red Blood Cells # 0.0 Sodium Level 140 Potassium Level 3.8 Chloride Level 102 Carbon Dioxide Level 28 Anion Gap 14 Blood Urea Nitrogen 8 Creatinine 0.56 Glucose Level 112 Calcium Level 8.5 Medications Medications Current Medications Levetiracetam (Keppra 500 Mg/ 100ml (Pmx)) 100 ml @ 400 mls/hr BID IVPB Last administered on 05/28/17 08:26; Admin Dose 400 MLS/HR; Start 05/25/17 at 21: 00 Dexamethasone (Decadron) 4 mg Q6 IV Last administered on 05/28/17 05:43; Admin Dose 4 MG; Start 05/25/17 at 15:30 Famotidine (Pepcid Iv) 20 mg BID IV Last administered on 05/27/17 21:16; Admin Dose 20 MG; Start 05/25/17 at 21:00 Acetaminophen (Tylenol Tab) 650 mg Q6H PRN PO PAIN LEVEL 1-3 OR FEVER; Start 05/25/17 at 16:00 Docusate Sodium (Colace) 100 mg Q12H PRN PO CONSTIPATION; Start 05/25/17 at 16 :00 Magnesium Hydroxide (Milk Of Mag) 30 ml DAILY PRN PO CONSTIPATION; Start 05/25 at 16:00 Sodium Biphosphate/ Sodium Phosphate 133 ml 133 ml DAILY PRN [place] CONSTIPATION; Start 05/25/17 at 16:00 Sodium Chloride (1/2 NS) 1,000 ml @ 100 mls/hr Q10H IV Last administered on 04:06; Admin Dose 100 MLS/HR; Start 05/25/17 at 15:46 Hydralazine HCl 10 mg 10 mg Q6H PRN IV ELEVATED BLOOD PRESSURE Last administered on 05/27/17 18:23; Admin Dose 10 MG; Start 05/25/17 at 16:00 Ceftriaxone Sodium (Rocephin) 50 ml @ 100 mls/hr Q24H IVPB Last administered on 05/27/17 17:04; Admin Dose 100 MLS/HR; Start 05/25/17 at 16:00 Nitroglycerin (Nitroglycerin (Sl Tab) 0.4 Mg) 1 tab Q5M PRN SL ANGINA; Start 05/25/17 at 16:00 Acetaminophen/ Hydrocodone Bitart ([place] (5/325)) 2 tab Q6H PRN PO MODERATE PAIN LEVEL 4-6; Start 05/27/17 at 22:00 Hydromorphone HCl (Dilaudid) 0.4 mg Q1HWA PRN IV PAIN LEVEL 8-10 Last administered on 05/28/17 04:20; Admin Dose 0.4 MG; Start 05/27/17 at 17:00 Ondansetron HCl (Zofran Inj) 4 mg Q6H PRN IV NAUSEA AND/OR VOMITING; Start at 22:00 SELMA GARNER May 28, 2017 09:27
[2017-05-28] MEDS: CEFTRIAXONE 1 GM/50 ML (PMX) 50 ML IVPB SCH (16:57)
[2017-05-28] MEDS ORDERED: HALOPERIDOL 5 MG INJ IM ONE (21:00)
[2017-05-28] MEDS ORDERED: ALPRAZOLAM 0.5 MG TAB PO PRN (21:00)
[2017-05-29] VITALS (12 sets, daily range): BP systolic 112–144; BP diastolic 56–75; PULSE 50–64; RESP 16–18
--- NOTE | 2017-05-29 00:28 | RADRPT ---
PROCEDURE: MRI Brain with and without contrast. CLINICAL INDICATION: Brain mass status post craniotomy. TECHNIQUE: An MRI of the brain was performed on a Signa HDxt 3 guru scanner utilizing the followi ng sequences: Sagittal T1 FLAIR, axial T2 FLAIR, coronal T2* gradient echo, axial SHIRAZ T2, axial T1 F LAIR, and axial diffusion-weighted (EPI technique, [id number]) with ADC mapping. Axial and coronal T1 3D FSPGR images were obtained before and after the administration of 10 cc Magnevist intravenous con tras. Images were viewed on a PACS workstation. COMPARISON: 05/25/2017. FINDINGS: The patient is status post right parieto-occipital craniotomy and resection of right parieto-occipit al lobe mass. There is heterogeneous signal within the right parieto-occipital lobe surgical bed con sistent with blood products, fluid and air. There is mild overlying dural enhancement and small amou nt of extra-axial subarachnoid hemorrhage. Again demonstrated is extensive vasogenic edema and/or tu mor infiltration throughout the right parietal, occipital, temporal and frontal lobe with extension to the splenium of the corpus callosum extending across the midline. There is mild mass effect upon the right posterior horn and midline shift to the left measuring up to 6 mm which is slightly decrea sed compared with the prior study. The ventricles and cortical sulci are otherwise within normal casas its for patient's age. There are no areas of restricted diffusion. Normal signal voids are seen wi thin the bilateral cavernous carotids. Visualized paranasal sinuses and mastoid air cells are clear. IMPRESSION: Status post right parieto-occipital craniotomy and resection of right parieto-occipital lobe mass wi th postoperative changes as described. Redemonstration of extensive vasogenic edema and/or tumor infiltration throughout the right parietal , occipital, temporal and frontal lobe with extension to the splenium of the corpus callosum extendi ng across the midline. Midline shift to the left measuring up to 6 mm which is slightly decreased compared with the prior s tudy. .Heber Nguyen MD, Date Time Electronically viewed and signed by .Heber Nguyen MD, on 05/29/2017 00:28 .T/
[2017-05-29] MEDS: HYDROmorphONE 1 MG/ML SYG IV PRN ×3 (02:19→08:33)
[2017-05-29] MEDS: DEXAMETHASONE 4 MG/ML 1 ML INJ IV SCH ×4 (05:34→23:59)
[2017-05-29] MEDS: LEVETIRACETAM 500 MG (PMX) 100 ML IVPB SCH ×2 (08:33→21:06)
[2017-05-29] MEDS: FAMOTIDINE 20 MG INJ IV SCH ×2 (08:33→21:00)
[2017-05-29 08:51] LABS: BASOPHILS % 0.1 % (0.0-2.0); HEMATOCRIT 33.5 % (37.0-47.0); HEMOGLOBIN 10.7 g/dl (12.0-16.0); LYMPHOCYTES # 1.3 10^3/ul (0.8-2.9); LYMPHOCYTES % 6.9 % (15.0-51.0); MEAN CORPUSCULAR HEMOGLOBIN 29.6 pg (29.0-33.0); MEAN CORPUSCULAR HGB CONC 31.9 g/dl (32.0-37.0); MEAN CORPUSCULAR VOLUME 92.5 fl (82.0-101.0); MEAN PLATELET VOLUME 9.2 fl (7.4-10.4); MONOCYTE # 1.2 10^3/ul (0.3-0.9); MONOCYTES % 6.2 % (0.0-11.0); NEUTROPHIL # 16.4 10^3/ul (1.6-7.5); PLATELET COUNT 490 10^3/UL (140-415); RED BLOOD COUNT 3.62 10^6/ul (4.20-5.40); WHITE BLOOD COUNT 19.1 10^3/ul (4.8-10.8)
[2017-05-29 09:20] LABS: CALCIUM 8.8 mg/dl (8.4-10.2); CREATININE 0.56 mg/dl (0.44-1.00); POTASSIUM 4.2 mmol/L (3.5-5.1)
[2017-05-29] MEDS: HYDROCODONE/APAP (10/325) TAB PO SCH ×3 (11:56→23:26)
--- NOTE | 2017-05-29 11:57 | PN ---
Date/Time of Note Date/Time of Note DATE: 05/29/17 TIME: 11:54 Assessment/Plan VTE Prophylaxis VTE Prophylaxis Intervention: SCD's Lines/Catheters IV Catheter Type (from [facility]): Peripheral IV Urinary Cath still in place: No Assessment/Plan Chief Complaint/Hosp Course S: Patient still complaining of some visual changes and off-and-on headache, otherwise tolerating diet, no acute events overnight, drain removed by neurosurgery team yesterday, out of ICU now. Repeat MRI of the brain was performed last night as well. O: VS (see below) PE: GENERAL: patient lying in bed, answers questions appropriately, no acute distress. HEENT: Pupils equal, round, react to light. Extraocular muscles intact. NECK: Supple. No thyromegaly. LUNGS: Clear to auscultation bilaterally. CARDIOVASCULAR: S1, S2 heard. No rubs, gallops. ABDOMEN: Soft, nontender, nondistended. Normal bowel sounds. No rebound or guarding. MUSCULOSKELETAL: No lower extremity edema bilaterally. NEUROLOGIC: No focal deficits. ASSESSMENT/PLAN: A 41-year-old female coming in with headache symptoms getting worse over the last 2 days and also vomiting symptoms with brain mass found on imaging studies. 1. Headache and vomiting - again likely secondary to the patient's imaging studies of the brain showing brain mass, S/P right parieto-occipital stereotactic craniotomy for resection of tumor postop day #2. There is concern this could be GBM. Biopsy results are pending however. MRI of the brain last night did show some decrease in the midline shift. -Continue neuro checks, avoid anticoagulants for now. -Follow up recommendations from neurosurgery team. -Decadron IV per neurosurgery recommendations and Nusrat, as well, PT eval. -Pain control for headache and nausea vomiting symptoms 2. Leukocytosis -in addition to brain mass, UA is positive for leukocyte esterase, so signs of UTI. Patient also on IV steroids. -Continue Rocephin for now. 3. Nausea and vomiting, again likely secondary to number 1. Antiemetics, as well. 4. Gastrointestinal prophylaxis. Pepcid. 5. Deep vein thrombosis prophylaxis. SCDs. Dispo: Per neurosurgery team, likely home in 24 hours of her headache and nausea vomiting symptoms are controlled. Again still awaiting biopsy results as well. Problems: Exam/Review of Systems Vital Signs Vitals Vital Signs Date Time Temp Pulse Resp B/P Pulse Ox O2 Delivery O2 Flow Rate FiO2 05/29/17 08:10 64 05/29/17 07:53 98.6 18 132/56 98 05/28/17 18:00 Room Air 05/27/17 21:00 2.0 Intake and Output 05/28/17 05/28/17 05/29/17 14:59 22:59 06:59 Intake Total 1005 ml 300 ml 250 ml Output Total 735 ml 700 ml Balance 270 ml -400 ml 250 ml Results Result Diagram: 05/29/17 0832 05/29/17 0832 Results 24 hrs Laboratory Tests Test 05/29/17 08:32 White Blood Count 19.1 H Red Blood Count 3.62 L Hemoglobin 10.7 L Hematocrit 33.5 L Mean Corpuscular Volume 92.5 Mean Corpuscular Hemoglobin 29.6 Mean Corpuscular Hemoglobin Concent 31.9 L Red Cell Distribution Width 12.0 Platelet Count 490 H Mean Platelet Volume 9.2 Neutrophils % 86.0 H Lymphocytes % 6.9 L Monocytes % 6.2 Eosinophils % 0.0 Basophils % 0.1 Nucleated Red Blood Cells % 0.0 Neutrophils # 16.4 H Lymphocytes # 1.3 Monocytes # 1.2 H Eosinophils # 0.0 Basophils # 0.0 Nucleated Red Blood Cells # 0.0 Sodium Level 138 Potassium Level 4.2 Chloride Level 98 Carbon Dioxide Level 28 Anion Gap 16 Blood Urea Nitrogen 13 Creatinine 0.56 Glucose Level 110 Calcium Level 8.8 Medications Medications Current Medications Levetiracetam (Keppra 500 Mg/ 100ml (Pmx)) 100 ml @ 400 mls/hr BID IVPB Last administered on 05/29/17 08:33; Admin Dose 400 MLS/HR; Start 05/25/17 at 21: 00 Dexamethasone (Decadron) 4 mg Q6 IV Last administered on 05/29/17 05:34; Admin Dose 4 MG; Start 05/25/17 at 15:30 Famotidine (Pepcid Iv) 20 mg BID IV Last administered on 05/27/17 21:16; Admin Dose 20 MG; Start 05/25/17 at 21:00 Acetaminophen (Tylenol Tab) 650 mg Q6H PRN PO PAIN LEVEL 1-3 OR FEVER Last administered on 05/28/17 11:20; Admin Dose 650 MG; Start 05/25/17 at 16:00 Docusate Sodium (Colace) 100 mg Q12H PRN PO CONSTIPATION; Start 05/25/17 at 16 :00 Magnesium Hydroxide (Milk Of Mag) 30 ml DAILY PRN PO CONSTIPATION; Start 05/25 at 16:00 Sodium Biphosphate/ Sodium Phosphate (Fleet Enema) 133 ml DAILY PRN [place] CONSTIPATION; Start 05/25/17 at 16:00 Hydralazine HCl 10 mg 10 mg Q6H PRN IV ELEVATED BLOOD PRESSURE Last administered on 05/27/17 18:23; Admin Dose 10 MG; Start 05/25/17 at 16:00 Ceftriaxone Sodium (Rocephin) 50 ml @ 100 mls/hr Q24H IVPB Last administered on 05/28/17 16:57; Admin Dose 100 MLS/HR; Start 05/25/17 at 16:00 Nitroglycerin (Nitroglycerin (Sl Tab) 0.4 Mg) 1 tab Q5M PRN SL ANGINA; Start 05/25/17 at 16:00 Ondansetron HCl (Zofran Inj) 4 mg Q6H PRN IV NAUSEA AND/OR VOMITING; Start at 22:00 Alprazolam (Xanax) 0.5 mg Q8 PRN PO ANXIETY; Start 05/28/17 at 21:00 Acetaminophen/ Hydrocodone Bitart ([place] (10325)) 2 tab Q6H PO ; Start at 11:30 SELMA GARNER 26, 2017 11:57
[2017-05-29] MEDS: CEFTRIAXONE 1 GM/50 ML (PMX) 50 ML IVPB SCH (17:06)
[2017-05-30] VITALS (12 sets, daily range): BP systolic 115–147; BP diastolic 62–76; PULSE 56–84; RESP 18–19
[2017-05-30] MEDS: HYDROCODONE/APAP (10/325) TAB PO SCH ×4 (05:20→23:19)
[2017-05-30] MEDS: DEXAMETHASONE 4 MG/ML 1 ML INJ IV SCH ×2 (05:51→11:50)
[2017-05-30 07:26] LABS: BASOPHILS % 0.1 % (0.0-2.0); HEMATOCRIT 35.2 % (37.0-47.0); HEMOGLOBIN 11.2 g/dl (12.0-16.0); LYMPHOCYTES # 1.6 10^3/ul (0.8-2.9); LYMPHOCYTES % 8.9 % (15.0-51.0); MEAN CORPUSCULAR HEMOGLOBIN 29.3 pg (29.0-33.0); MEAN CORPUSCULAR HGB CONC 31.8 g/dl (32.0-37.0); MEAN CORPUSCULAR VOLUME 92.1 fl (82.0-101.0); MEAN PLATELET VOLUME 9.1 fl (7.4-10.4); MONOCYTES % 5.6 % (0.0-11.0); NEUTROPHIL # 15.2 10^3/ul (1.6-7.5); NEUTROPHILS % 84.5 % (39.0-77.0); PLATELET COUNT 534 10^3/UL (140-415); RED BLOOD COUNT 3.82 10^6/ul (4.20-5.40); RED CELL DISTRIBUTION WIDTH 11.8 % (11.5-14.5)
[2017-05-30 07:52] LABS: CREATININE 0.57 mg/dl (0.44-1.00); POTASSIUM 4.4 mmol/L (3.5-5.1)
[2017-05-30] MEDS: FAMOTIDINE 20 MG INJ IV SCH (09:00)
[2017-05-30] MEDS: DOCUSATE SODIUM 100 MG CAP PO PRN (11:45)
--- NOTE | 2017-05-30 11:56 | OPR ---
Date/Time of Note Date/Time of Note DATE: 05/30/17 TIME: 11:51 Operative Report Procedure Date: May 27, 2017 Preoperative Diagnosis See below Postoperative Diagnosis See below Surgeon see signature line Quantitative Manager None Anesthesia Type: general Estimated Blood Loss: 50 - 100 ml's Transfusion none Specimen Right parieto-occipital intraparenchymal tumor Grafts/Implants none Tubes/Drains right parieto-occipital intraparenchymal drain Complications none Pt Condition Post Procedure: stable Disposition: other (ICU) Procedure Description Date of operation: 05/27/2017 Preoperative diagnosis: Right parieto-occipital intraparenchymal tumor Postoperative diagnosis: Same as above Operation performed: 1. Right parieto-occipital craniotomy for resection of intraparenchymal tumor 2. Frameless intraoperative neuro navigation (intraduralstereotactic surgery), (BrainLab protocol MRI) 3. Intraoperative microscope with microdissection 4. Intraoperative neurophysiologic monitoring including EKG Indication for procedure: Please see the inpatient consultation note and progress notes for full set of indications Description of operative procedure: The patient was brought to the operating room and placed supine on the operating table. After general anesthesia was obtained, the patient's head was placed in a [place] early head start director. Her head and neck were then flexed in order to be able to expose the patient's prior occipital area. The [place] headholder was then fixed to the table in that position. All pressure points were noted and padded appropriately. The patient 's facial fiducials were then co-registered with the preoperatively obtained stereotactic MRI of the brain using the BrainLab intraoperative neuro navigation. Multiple external landmarks on the face and head were checked to confirm the accuracy of the neuro navigation. The borders of the mass were then located over the patient's right parieto-occipital scalp. Then the patient 's hair was combed to the sides in order to be able to expose a U-shaped like incision with the base of the you over midline and going laterally to the right parasagittal area. This was done to avoid shaving the patient's scalp. A small strip of hair was then shaven along the U-shaped incision area. After the scalp was prepped and draped understand standard sterile fashion, local anesthetics were infiltrated into the marked incision. The skin was then incised down to the level of the skull. The scalp flap was then rotated laterally towards the right. Fishhooks were used in order to retract the scalp flap away. Stereotactic navigation was then used in order to again confirm the midline and the superior sagittal sinus as well as the anterior posterior lateral borders of the tumor. 3 bur holes were then placed at midline along the superior sagittal sinus. The dura was then dissected off of the overlying skull. The craniotome was then used in order to complete the craniotomy flap. The bone was then removed. The patient had been given Decadron intraoperatively and by this point she was hyperventilated to a PCO2 of 28 and was put on burst suppression. The dura was then opened up in a curvilinear fashion with the base of the dural opening being at the superior sagittal sinus. The exposed brain appeared to be edematous. 50 g Mannitol was also requested to be given to the patient. Stereotactic neuro navigation probe was used in order to locate the part of the tumor that came closest to the surface of the brain and away from traversing cortical vessels under direct vision. The operative microscope was brought into the field. A small corticectomy was then made at this region. Jiménez abnormal looking tissue consistent with a mass was seen just deep to the cortex. We then began debulking the mass internally. The mass appeared to be heterogeneous in nature and part of the mass were grayish-looking and other parts appear to be more white and fibrous. Multiple thrombosed feeding vessels were encountered. There are also other feeding vessels that had to be coagulated. Parts of the mass appeared to be necrotic in nature. Several pieces of the mass were removed and sent off the table for frozen section pathology. Multiple larger pieces of the mass were removed and sent off the table for permanent pathology including molecular testing. Once the mass was greatly debulked, we then started reaching the borders of the mass superiorly and inferiorly medially and laterally anteriorly and posteriorly. This stereotactic navigation wand was used throughout the procedure in order to help guide us and reaching the borders of the mass. There was gross demarcation between the mass and the adjacent white matter tissue allowing us to achieve a gross total resection of the mass. The borders of the mass were reached in the painstaking fashion using microsurgical dissection techniques. The medial border of the mass came right to the falx cerebri. Multiple feeding vessels in this region were also coagulated. By the time the mass was fully resected, the brain became a lot more relaxed and pulsatile. The wound was copiously irrigated with antibiotic solution and complete hemostasis was obtained. The large tumor resection cavity was then lined with Surgicel and Gelfoam thrombin. The ventriculostomy catheter was then softly inserted in the tumor resection bed and the other end of the catheter was brought out of the skin away from the incision site. The dura was then laid over the brain but because the brain appeared to be still somewhat swollen, the dura could not be primarily reapproximated. A piece of DuraGen was placed over the dura and the brain. The bone flap was then reattached to the skull using craniotomy plates and screws. The wound was copiously irrigated without chronic solution. The scalp was then reapproximated at the level of the galea with interrupted sutures. The skin was reapproximated with a simple running Rapide 3-0 suture. The right intraparenchymal drain was secured at its exit site to the skin with a suture and connected to ventriculostomy drainage bag. A thin film of antibiotic ointment was placed on top of the incision site. As the bone flap was reapproximated, the burst suppression and hyperventilation were discontinued. The patient's head was then removed from the [place] early head start director. She was then woken up, extubated and transported to the intensive care unit in stable condition. Estimated blood loss: 100 cc Blood products administered: None Type of anesthesia: Gen. 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
--- NOTE | 2017-05-30 12:06 | PN ---
Date/Time of Note Date/Time of Note DATE: 05/28/17 TIME: 1500 Assessment/Plan VTE Prophylaxis VTE Prophylaxis Intervention: ambulation Lines/Catheters [facility] Saline Lock Central line still needed: No Urinary Cath still in place: No Assessment/Plan Assessment/Plan Date of progress note: 05/28/2017 The patient is postop day 1 status post right prior occipital craniotomy for resection of intraparenchymal tumor. The patient is being cared for in the ICU. Overall the patient is doing quite well and is able to move her upper and lower extremities well to command. Her preop baseline left-sided hemiparesis has now improved with motor strength on the left being 4+ out of 5. The patient still has left homonymous hemianopsia. She is awake alert and oriented 4. Her language is fluent. Her postop CT of the head does not show any evidence of hematoma. Requested postop MRI of the brain with and without contrast is pending. The patient's parents whom I met yesterday morning just prior to going to surgery are at the patient's bedside again today. They are pleased with how well the patient is doing so far on postop day #1. I have indicated to the patient, her parents and ICU nurse that the patient may get out of bed today with assistance. Physical therapy has been requested. The patient will need to continue the Decadron and Keppra medication for now. Her Deutsch catheter an A -line can be discontinued. The patient may be transferred out of the ICU to telemetry. The patient is very anxious and wants to know when she can return to work. I have indicated to her, that she is only postop day 1 after having had her brain surgery. The patient's most important goal at this point should be to focus on her postop recovery which would include getting out of bed, ambulating, eating and getting stronger. Certainly as the patient starts to feel better she can decide as to when she is able to return to work. But for now, the patient needs to be excused from work for at least the next 3-4 weeks unless the patient feels that she is able to return to work sooner. At this point the final pathology is not available and will require at least 3-4 daysfor the various studies to be done. Once I am informed of the results I were certainly related the information to the patient and her family. Depending on the pathology results, the patient may require adjuvant therapy including possible chemotherapy or radiation therapy. This will also require neuro-oncology consultation. But at this point without final pathology results , oncology consultation can be put on hold. Patient and her family are very appreciative of everything that has been done for the patient so far. ENRIQUE TEJADA MD May 30, 2017 12:05
--- NOTE | 2017-05-30 12:11 | PN ---
Date/Time of Note Date/Time of Note DATE: 05/29/17 TIME: 1430 Assessment/Plan VTE Prophylaxis VTE Prophylaxis Intervention: ambulation Lines/Catheters [facility] Saline Lock Central line still needed: No Urinary Cath still in place: No Assessment/Plan Assessment/Plan Date of progress note: 05/29/2017 The patient is postop day 2. She is now on the telemetry unit. Her parents are at bedside. She continues to be doing quite well. She has been ambulating with assistance. She is voiding on her own. She is tolerating by mouth intake. The neurologic exam is unchanged compared to before. The right prior occipital intraparenchymal drain has been removed. The patient's postop MRI of the brain with and without contrast shows gross total resection of the patient' s right parieto-occipital tumor when comparing the pre-and post contrast axial, sagittal and coronal T1 images. The focal mass effect has also been decreased compared to her preoperative MRI. I have indicated to the patient and her family that from my standpoint the patient may be discharged from the hospital tomorrow. She is to continue the Decadron upon discharge and her Decadron can be put on a tapering dose for the next 2 weeks where by 2 weeks from now the Decadron can be gradually discontinued. I also recommend that the patient be continued on the Keppra medication at least for the next 2 weeks. The patient will follow-up with me in clinic in the next 2-3 weeks for postop visit. The patient's scalp sutures are absorbable. ENRIQUE TEJADA MD May 30, 2017 12:11
--- NOTE | 2017-05-30 16:44 | PN ---
Date/Time of Note Date/Time of Note DATE: 05/30/17 TIME: 16:43 Assessment/Plan VTE Prophylaxis VTE Prophylaxis Intervention: SCD's Lines/Catheters IV Catheter Type (from Nrs): Saline Lock Urinary Cath still in place: No Assessment/Plan Assessment/Plan 41 yo F admitted for headache, double vision, nausea, found to have brain mass, sp resection. biopsy results pending #brain mass: appreciate neurosurg involvement change AEDs to PO convert steroids to PO, start taper per per neurosurg rec DISCHARGE PLANNING outpatient neurosurg follow up Exam/Review of Systems Vital Signs Vitals Vital Signs Date Time Temp Pulse Resp B/P Pulse Ox O2 Delivery O2 Flow Rate FiO2 05/30/17 16:13 77 05/30/17 15:23 97.5 18 147/62 95 05/30/17 12:00 Room Air 05/27/17 21:00 2.0 Intake and Output 05/29/17 05/29/17 05/30/17 15:00 23:00 07:00 Intake Total 100 ml 50 ml 300 ml Balance 100 ml 50 ml 300 ml Results Result Diagram: 05/30/1770405/30/17704 Results 24 hrs Laboratory Tests Test 05/30/17 07:05 White Blood Count 18.0 H Red Blood Count 3.82 L Hemoglobin 11.2 L Hematocrit 35.2 L Mean Corpuscular Volume 92.1 Mean Corpuscular Hemoglobin 29.3 Mean Corpuscular Hemoglobin Concent 31.8 L Red Cell Distribution Width 11.8 Platelet Count 534 H Mean Platelet Volume 9.1 Neutrophils % 84.5 H Lymphocytes % 8.9 L Monocytes % 5.6 Eosinophils % 0.0 Basophils % 0.1 Nucleated Red Blood Cells % 0.0 Neutrophils # 15.2 H Lymphocytes # 1.6 Monocytes # 1.0 H Eosinophils # 0.0 Basophils # 0.0 Nucleated Red Blood Cells # 0.0 Sodium Level 137 Potassium Level 4.4 Chloride Level 98 Carbon Dioxide Level 30 Anion Gap 13 Blood Urea Nitrogen 15 Creatinine 0.57 Glucose Level 116 Calcium Level 9.0 Medications Medications Current Medications Dexamethasone (Decadron) 4 mg Q6 IV Last administered on 05/30/17 11:50; Admin Dose 4 MG; Start 05/25/17 at 15:30 Famotidine (Pepcid Iv) 20 mg BID IV Last administered on 05/27/17 21:16; Admin Dose 20 MG; Start 05/25/17 at 21:00 Acetaminophen (Tylenol Tab) 650 mg Q6H PRN PO PAIN LEVEL 1-3 OR FEVER Last administered on 05/28/17 11:20; Admin Dose 650 MG; Start 05/25/17 at 16:00 Docusate Sodium (Colace) 100 mg Q12H PRN PO CONSTIPATION Last administered on 05/30/17 11:45; Admin Dose 100 MG; Start 05/25/17 at 16:00 Magnesium Hydroxide (Milk Of Mag) 30 ml DAILY PRN PO CONSTIPATION; Start 05/25 at 16:00 Sodium Biphosphate/ Sodium Phosphate (Fleet Enema) 133 ml DAILY PRN MA CONSTIPATION; Start 05/25/17 at 16:00 Hydralazine HCl (Apresoline) 10 mg Q6H PRN IV ELEVATED BLOOD PRESSURE Last administered on 05/27/17 18:23; Admin Dose 10 MG; Start 05/25/17 at 16:00 Nitroglycerin (Nitroglycerin (Sl Tab) 0.4 Mg) 1 tab Q5M PRN SL ANGINA; Start 05/25/17 at 16:00 Ondansetron HCl (Zofran Inj) 4 mg Q6H PRN IV NAUSEA AND/OR VOMITING; Start at 22:00 Alprazolam (Xanax) 0.5 mg Q8 PRN PO ANXIETY; Start 05/28/17 at 21:00 Acetaminophen/ Hydrocodone Bitart ([place] (10/325)) 2 tab Q6H PO Last administered on 05/30/17 11:45; Admin Dose 2 TAB; Start 05/29/17 at 11:30 Levetiracetam (Keppra) 500 mg BID PO ; Start 05/30/17 at 15:30 SOHA CHRISTIE MD May 30, 2017 16:44
[2017-05-30] MEDS: LEVETIRACETAM 500 MG TAB PO SCH ×2 (16:54→20:24)
[2017-05-30] MEDS: DEXAMETHASONE 4 MG TAB PO SCH (16:55)
[2017-05-30] MEDS ORDERED: LEVETIRACETAM 500 MG TAB PO SCH (21:00)
[2017-05-30] MEDS: FAMOTIDINE 20 MG TAB PO SCH (21:00)
[2017-05-31 00:10] VITALS: PULSE 64
[2017-05-31] MEDS: DEXAMETHASONE 4 MG TAB PO SCH ×3 (00:53→17:08)
[2017-05-31] MEDS: HYDROCODONE/APAP (10/325) TAB PO SCH ×4 (05:26→23:33)
[2017-05-31 07:40] VITALS: BP 114/58; RESP 20
[2017-05-31] MEDS: FAMOTIDINE 20 MG TAB PO SCH ×2 (08:57→20:50)
[2017-05-31] MEDS: LEVETIRACETAM 500 MG TAB PO SCH ×2 (08:58→20:51)
[2017-05-31 09:13] LABS: ABNORMAL IP MESSAGE 1; BASOPHILS % 0.1 % (0.0-2.0); HEMATOCRIT 36.4 % (37.0-47.0); HEMOGLOBIN 11.7 g/dl (12.0-16.0); LYMPHOCYTES # 1.5 10^3/ul (0.8-2.9); LYMPHOCYTES % 7.4 % (15.0-51.0); MEAN CORPUSCULAR HEMOGLOBIN 29.8 pg (29.0-33.0); MEAN CORPUSCULAR HGB CONC 32.1 g/dl (32.0-37.0); MEAN CORPUSCULAR VOLUME 92.9 fl (82.0-101.0); MEAN PLATELET VOLUME 9.2 fl (7.4-10.4); MONOCYTE # 1.7 10^3/ul (0.3-0.9); MONOCYTES % 8.2 % (0.0-11.0); NEUTROPHILS % 82.7 % (39.0-77.0); PLATELET COUNT 572 10^3/UL (140-415); RED BLOOD COUNT 3.92 10^6/ul (4.20-5.40); RED CELL DISTRIBUTION WIDTH 11.9 % (11.5-14.5); WHITE BLOOD COUNT 20.6 10^3/ul (4.8-10.8)
[2017-05-31 09:16] LABS: POSITIVE DIFF @See below
[2017-05-31 09:30] LABS: CALCIUM 9.7 mg/dl (8.4-10.2); CREATININE 0.71 mg/dl (0.44-1.00); POTASSIUM 4.7 mmol/L (3.5-5.1)
[2017-05-31 10:55] VITALS: BP 132/76; RESP 20
[2017-05-31] MEDS: DOCUSATE SODIUM 100 MG CAP PO PRN (12:07)
[2017-05-31] MEDS: MAGNESIUM HYDROXIDE 30ML CUP PO PRN (12:07)
[2017-05-31 15:08] VITALS: BP 118/64; RESP 20
--- NOTE | 2017-05-31 15:25 | PN ---
Date/Time of Note Date/Time of Note DATE: 05/31/17 TIME: 15:22 Assessment/Plan VTE Prophylaxis VTE Prophylaxis Intervention: SCD's Lines/Catheters IV [facility] Saline Lock Urinary Cath still in place: No Assessment/Plan Assessment/Plan 41 yo F admitted for headache, double vision, nausea, found to have brain mass, sp resection. biopsy results pending #brain mass: appreciate neurosurg involvement. prelim path GBM per pathology cont PO AEDs, steroid taper ordered onc consult requested once final path is back DISCHARGE PLANNING: to ARU once final path is back--likely tomorrow. Given aggressive nature of pt's potential diagnosis it's prudent to involve specialists as early as possible. Outpatient follow up could possibly result in delay of care which could exacerbate disease course downgrade from tele to medsur Subjective 24 Hr Interval Summary Free Text/Dictation dw pt and her parents that prelim path is GBM. pt continues to hope path will return benign Exam/Review of Systems Vital Signs Vitals Vital Signs Date Time Temp Pulse Resp B/P Pulse Ox O2 Delivery O2 Flow Rate FiO2 05/31/17 15:08 98.2 67 20 118/64 98 05/31/17 12:19 Room Air 05/27/17 21:00 2.0 Intake and Output 05/30/17 05/30/17 05/31/17 14:59 22:59 06:59 Intake Total 900 ml 120 ml Balance 900 ml 120 ml Exam nad sitting up in bed wearing glasses resp nonlabored abd nondistended no rashes Results Result Diagram: 05/31/17 0831 05/31/17 0830 Results 24 hrs Laboratory Tests Test 05/31/17 08:30 05/31/17 08:31 05/31/17 12:06 Sodium Level 139 Potassium Level 4.7 Chloride Level 96 L Carbon Dioxide Level 35 H Anion Gap 13 Blood Urea Nitrogen 16 Creatinine 0.71 Glucose Level 119 Calcium Level 9.7 White Blood Count 20.6 H Red Blood Count 3.92 L Hemoglobin 11.7 L Hematocrit 36.4 L Mean Corpuscular Volume 92.9 Mean Corpuscular Hemoglobin 29.8 Mean Corpuscular Hemoglobin Concent 32.1 Red Cell Distribution Width 11.9 Platelet Count 572 H Mean Platelet Volume 9.2 Neutrophils % 82.7 H Lymphocytes % 7.4 L Monocytes % 8.2 Eosinophils % 0.0 Basophils % 0.1 Nucleated Red Blood Cells % 0.0 Neutrophils # 17.0 H Lymphocytes # 1.5 Monocytes # 1.7 H Eosinophils # 0.0 Basophils # 0.0 Nucleated Red Blood Cells # 0.0 Bedside Glucose 107 Medications Medications Current Medications Acetaminophen (Tylenol Tab) 650 mg Q6H PRN PO PAIN LEVEL 1-3 OR FEVER Last administered on 05/28/17 11:20; Admin Dose 650 MG; Start 05/25/17 at 16:00 Docusate Sodium (Colace) 100 mg Q12H PRN PO CONSTIPATION Last administered on 05/31/17 12:07; Admin Dose 100 MG; Start 05/25/17 at 16:00 Magnesium Hydroxide (Milk Of Mag) 30 ml DAILY PRN PO CONSTIPATION Last administered on 05/31/17 12:07; Admin Dose 30 ML; Start 05/25/17 at 16:00 Sodium Biphosphate/ Sodium Phosphate (Fleet Enema) 133 ml DAILY PRN [place] CONSTIPATION; Start 05/25/17 at 16:00 Nitroglycerin (Nitroglycerin (Sl Tab) 0.4 Mg) 1 tab Q5M PRN SL ANGINA; Start 05/25/17 at 16:00 Ondansetron HCl (Zofran Inj) 4 mg Q6H PRN IV NAUSEA AND/OR VOMITING; Start at 22:00 Alprazolam (Xanax) 0.5 mg Q8 PRN PO ANXIETY; Start 05/28/17 at 21:00 Acetaminophen/ Hydrocodone Bitart ([place] (10/325)) 2 tab Q6H PO Last administered on 05/31/17 12:07; Admin Dose 2 TAB; Start 05/29/17 at 11:30 Levetiracetam (Keppra) 500 mg BID PO Last administered on 05/31/17 08:58; Admin Dose 500 MG; Start 05/30/17 at 15:30 Dexamethasone (Decadron) 4 mg Q8H PO Last administered on 05/31/17 08:58; Admin Dose 4 MG; Start 05/30/17 at 17:00; Stop 06/04/17 at 16:59 Dexamethasone (Decadron) 4 mg Q12H PO ; Start 06/05/17 at 17:00; Stop 06/10/17 at 16:59 Dexamethasone (Decadron) 4 mg DAILY PO ; Start 06/10/17 at 09:00; Stop at 08:59 Famotidine (Pepcid) 20 mg BID PO ; Start 05/30/17 at 21:00 SOHA CHRISTIE MD May 31, 2017 15:24
[2017-05-31 20:24] VITALS: BP 125/65; RESP 16
[2017-06-01] VITALS (9 sets, daily range): BP systolic 107–131; BP diastolic 60–81; PULSE 70–72; RESP 16–18
[2017-06-01] MEDS: DEXAMETHASONE 4 MG TAB PO SCH ×3 (01:09→17:25)
[2017-06-01] MEDS: HYDROCODONE/APAP (10/325) TAB PO SCH ×4 (05:33→23:35)
[2017-06-01] MEDS: LEVETIRACETAM 500 MG TAB PO SCH ×2 (08:24→20:44)
[2017-06-01] MEDS: FAMOTIDINE 20 MG TAB PO SCH ×2 (08:24→20:47)
[2017-06-01 09:07] LABS: BASOPHILS % 0.1 % (0.0-2.0); HEMOGLOBIN 12.4 g/dl (12.0-16.0); LYMPHOCYTES % 8.6 % (15.0-51.0); MEAN CORPUSCULAR HGB CONC 32.6 g/dl (32.0-37.0); MEAN CORPUSCULAR VOLUME 91.8 fl (82.0-101.0); MEAN PLATELET VOLUME 9.2 fl (7.4-10.4); MONOCYTE # 1.5 10^3/ul (0.3-0.9); MONOCYTES % 6.2 % (0.0-11.0); NEUTROPHIL # 19.5 10^3/ul (1.6-7.5); NEUTROPHILS % 83.5 % (39.0-77.0); PLATELET COUNT 630 10^3/UL (140-415); RED BLOOD COUNT 4.14 10^6/ul (4.20-5.40); RED CELL DISTRIBUTION WIDTH 12.2 % (11.5-14.5); WHITE BLOOD COUNT 23.3 10^3/ul (4.8-10.8)
[2017-06-01 09:22] LABS: CALCIUM 9.5 mg/dl (8.4-10.2); CREATININE 0.63 mg/dl (0.44-1.00)
--- NOTE | 2017-06-01 10:23 | DS ---
Date/Time of Note Date/Time of Note DATE: 06/01/17 TIME: 10:22 Discharge Summary Admission/Discharge Info Admit Date/Time May 25, 2017 at 12:36 Discharge Date/Time Discharge Diagnosis Glioblastoma multiforme Patient Condition: Stable Consults neurosurgery Procedures . MRI brain IMPRESSION: 1. Complex heterogeneous mass within or overlying the right parietal lobe and occipital lobe, up to 5.9 x 5.0 x 3.4 cm. The appearance is suspicious for primary brain neoplasm, possibly glioblastoma multiforme. A complex extra-axial mass such as an atypical appearing meningioma is otherwise possible. 2. Extensive adjacent vasogenic edema, and/or infiltrating tumor, involving the right parietal lobe, occipital lobe, temporal lobe, and frontal lobe, with slight extension to the splenium of the corpus callosum across midline. 3. Midline shift to the left, 9 mm. Partial effacement of the posterior right lateral ventricle. 05.28 MRI brain IMPRESSION: Status post right parieto-occipital craniotomy and resection of right parieto- occipital lobe mass with postoperative changes as described. Redemonstration of extensive vasogenic edema and/or tumor infiltration throughout the right parietal, occipital, temporal and frontal lobe with extension to the splenium of the corpus callosum extending across the midline. Midline shift to the left measuring up to 6 mm which is slightly decreased compared with the prior study. 11.24 Right Right parieto-occipital stereotactic craniotomy for resection of tumor PATH MICROSCOPIC DIAGNOSIS: A, B-Brain, right parietal-occipital tumor: -- Glioblastoma multiforme. Hx of Present Illness A 41-year-old female, no significant past medical history, who presents with headache symptoms. She says her symptoms she believes began about 2 weeks ago when she says she took too much caffeine and felt "weird". Although she noticed some migraine-type of headache symptoms occurring more prominently over the last 2 days, although she denies history of migraines. She did have one episode of vomiting, nonbilious, nonbloody, today. She had been taking ibuprofen for the last few days with no relief in her symptoms, so she decided to come into the ER. She denied any night sweats. She did say she has been having some decreased appetite feeling for the last 2 weeks but has been eating her meals regularly. She does state also 15 pounds weight loss in the last month, partially intentional as she has been trying to lose weight. Denied any abdominal pain. She did have some subjective fevers and chills, as well, but no diarrhea or constipation. No upper or lower GI bleeding. No chest pain or shortness of breath. When she came in, she had imaging study of the brain that did show a 5.7 cm ill-defined right parietal lesion with marked surrounding vasogenic edema and 8 mm leftward midline shift. With differential considerations including brain mass or brain abscess, an MRI of the brain was ordered and the ER team did call the neurosurgeon who came and evaluated the patient, as well. Hospital Course Pt admitted for headaches, found to have brain mass. Pt underwent brain mass resection 05.27, pathology unfortunately returned with GBM. Test results discussed with pt and parents prior to transfer to ARU. CM referral placed for neuro oncology follow up. Steroid taper and AEDs as per neurosurgery Pt to be seen by a neuro onc within 1 week of ARU discharge Pt to f/u with her neurosurgeon within 2 weeks of ARU discharge Home Meds Active Scripts Nitrofurantoin Monohyd Macrocr* (Macrobid*) 100 Mg Capsr, 100 MG PO BID for 7 Days, CAP Prov:BRANDON LEOS PA-C 02/03/16 Reported Medications [None] No Conflict Check 03/31/12 Follow-up Plan Pt to be seen by a neuro onc within 1 week of ARU discharge Pt to f/u with her neurosurgeon within 2 weeks of ARU discharge Primary Care Provider Not On Staff Doctor Time spent on discharge: > 30 minutes Pending Labs Laboratory Tests Test 05/31/17 12:06 05/31/17 17:07 06/01/17 08:30 Bedside Glucose 107mg/dL (70-220) 116mg/dL (70-220) White Blood Count 23.310^3/ul (4.8-10.8) Red Blood Count 4.1410^6/ul (4.20-5.40) Hemoglobin 12.4g/dl (12.0-16.0) Hematocrit 38.0% (37.0-47.0) Mean Corpuscular Volume 91.8fl (82.0-101.0) Mean Corpuscular Hemoglobin 30.0pg (29.0-33.0) Mean Corpuscular Hemoglobin Concent 32.6g/dl (32.0-37.0) Red Cell Distribution Width 12.2% (11.5-14.5) Platelet Count 70152^3/UL (140-415) Mean Platelet Volume 9.2fl (7.4-10.4) Neutrophils % 83.5% (39.0-77.0) Lymphocytes % 8.6% (15.0-51.0) Monocytes % 6.2% (0.0-11.0) Eosinophils % 0.0% (0.0-7.0) Basophils % 0.1% (0.0-2.0) Nucleated Red Blood Cells % 0.0/100WBC (0.0-0.0) Neutrophils # 19.510^3/ul (1.6-7.5) Lymphocytes # 2.010^3/ul (0.8-2.9) Monocytes # 1.510^3/ul (0.3-0.9) Eosinophils # 0.010^3/ul (0.0-0.5) Basophils # 0.010^3/ul (0.0-0.1) Nucleated Red Blood Cells # 0.010^3/ul (0.0-0.0) Sodium Level 137mmol/L (135-144) Potassium Level 4.0mmol/L (3.5-5.1) Chloride Level 97mmol/L (97-110) Carbon Dioxide Level 29mmol/L (21-31) Anion Gap 15 (8-16) Blood Urea Nitrogen 16mg/dl (7-20) Creatinine 0.63mg/dl (0.44-1.00) Glucose Level 128mg/dl (70-220) Calcium Level 9.5mg/dl (8.4-10.2) Copies To: CC: ENRIQUE TEJADA MD, ELLEN MD Jun 01, 2017 10:23
--- NOTE | 2017-06-01 10:44 | PDOCDIS ---
Discharge Instructions DIAGNOSIS Discharge Diagnosis Glioblastoma multiforme CONDITION Patient Condition: Stable HOME CARE INSTRUCTIONS: Special Diet: REGULAR FOLLOW UP/APPOINTMENTS Follow-up Plan Your insurance company should be contacting you this week with information for a brain cancer specialist (neuro oncologist) they have a contract with. If you are not given this information by the day you are scheduled to leave the rehab unit, LET YOUR DOCTORS KNOW! Follow up with the brain surgeon Dr Flowers within 2 weeks Office Address [address] [place] [address] [address] [place] [address] Office SOHA CHRISTIE MD Jun 01, 2017 10:44
[2017-06-01] MEDS: MAGNESIUM HYDROXIDE 30ML CUP PO PRN (11:11)
[2017-06-01] MEDS ORDERED: SOD CHLORIDE 0.9% 1,000 ML IV ONE (12:30)
--- NOTE | 2017-06-01 14:31 | RADRPT ---
PROCEDURE: CT Brain without contrast. CLINICAL INDICATION: Seizure, Neurologic deficit TECHNIQUE: A CT of the brain was performed on multidetector high-resolution CT scanner utilizing a xial sections from the skull base through the vertex without contrast. One or more of the following dose reduction techniques were used: Automated exposure control, Adjustment of the mA and/or kV acc ording to patient size, and/or use of iterative reconstruction technique. DICOM images are available . DOSE: CTDI = 43 mGy and the DLP = 866 mGy-cm. COMPARISON: Brain MRI 05/28/2017, head CT 05/25/2017 FINDINGS: Right parietal craniotomy changes with underlying right parietal resection cavity again seen with re sidual blood products. No evidence of new bleeding or progressive mass effect. Confluent hypoattenua tion in the right posterior frontal, right parietal and right temporal white matter with involvement of the posterior body and splenium of the corpus callosum is again seen. There is mild decreased le ftward midline shift which now measures 4 mm, previously 6 mm. Ventricles are stable size. Basal cis terns remain clear. Paranasal sinuses and mastoids are clear. Right frontal 8 mm calcified dural bas ed lesion adjacent to the falx may correspond with a calcified meningioma. IMPRESSION: Right parietal craniotomy changes with underlying right parietal resection cavity again seen with re sidual blood products. No evidence of new bleeding. There is mild decreased leftward midline shift which now measures 4 mm, previously 6 mm. Confluent hypoattenuation in the right posterior frontal, right parietal and right temporal white ma tter with involvement of the posterior body and splenium of the corpus callosum is again seen and co mpatible with cerebral edema and/or infiltrative tumor. Right frontal 8 mm calcified dural based lesion adjacent to the falx may correspond with a calcifie d meningioma. RPTAT: AA .Vini Ribeiro MD, MD Date Time Electronically viewed and signed by .Vini Ribeiro MD, on 06/01/2017 14:31 .T/
--- NOTE | 2017-06-01 16:03 | PN ---
Date/Time of Note Date/Time of Note DATE: 06/01/17 TIME: 15:55 Assessment/Plan VTE Prophylaxis VTE Prophylaxis Intervention: SCD's Lines/Catheters IV [facility]ter [facility] (from [facility] Saline Lock Urinary Cath still in place: No Assessment/Plan Assessment/Plan 41 yo F admitted for headaches, found to have brain mass sp resection 05.27. path with GBM. Pt had a seizure this afternoon #seizure 2/2 edema from brain mass though edema improved on follow up imaging: increase keppra dosing from 500 to 750 BID cont decadron #GBM: CM consult to ensure pt is able to follow up with a neuro oncologist after discharge diagnosis discussed at length with patient's parents this morning. They are requesting we limit the amount of info given pt patient at this time. defer ARU xfer until pt is seizure free x 24 hours Subjective 24 Hr Interval Summary Free Text/Dictation Plan was for patient to go to ARU this morning then a rapid response was called because patient had a brief self limited seizure around 11am. I was present just after the seizure. Pt states she felt a little whoozy in the shower. Per nurse did not hit her head Exam/Review of Systems Vital Signs Vitals Vital Signs Date Time Temp Pulse Resp B/P Pulse Ox O2 Delivery O2 Flow Rate FiO2 06/01/17 15:36 98.0 74 17 130/70 99 05/31/17 15:55 Room Air Intake and Output 05/31/17 05/31/17 06/01/17 15:00 23:00 07:00 Intake Total 1200 ml 800 ml Balance 1200 ml 800 ml Exam pt seen just after her seizure, a little disoriented no mrg lungs clear abd soft no rashes repeat CT from after seizure noted. no bleed or masses, edema improving Results Result Diagram: 06/01/17 0830 06/01/17 0830 Results 24 hrs Laboratory Tests Test 05/31/17 17:07 06/01/17 08:30 06/01/17 12:06 Bedside Glucose 116 111 White Blood Count 23.3 H Red Blood Count 4.14 L Hemoglobin 12.4 Hematocrit 38.0 Mean Corpuscular Volume 91.8 Mean Corpuscular Hemoglobin 30.0 Mean Corpuscular Hemoglobin Concent 32.6 Red Cell Distribution Width 12.2 Platelet Count 630 H Mean Platelet Volume 9.2 Neutrophils % 83.5 H Lymphocytes % 8.6 L Monocytes % 6.2 Eosinophils % 0.0 Basophils % 0.1 Nucleated Red Blood Cells % 0.0 Neutrophils # 19.5 H Lymphocytes # 2.0 Monocytes # 1.5 H Eosinophils # 0.0 Basophils # 0.0 Nucleated Red Blood Cells # 0.0 Sodium Level 137 Potassium Level 4.0 Chloride Level 97 Carbon Dioxide Level 29 Anion Gap 15 Blood Urea Nitrogen 16 Creatinine 0.63 Glucose Level 128 Calcium Level 9.5 Medications Medications Current Medications Acetaminophen (Tylenol Tab) 650 mg Q6H PRN PO PAIN LEVEL 1-3 OR FEVER Last administered on 05/28/17 11:20; Admin Dose 650 MG; Start 05/25/17 at 16:00 Docusate Sodium (Colace) 100 mg Q12H PRN PO CONSTIPATION Last administered on 05/31/17 12:07; Admin Dose 100 MG; Start 05/25/17 at 16:00 Magnesium Hydroxide (Milk Of Mag) 30 ml DAILY PRN PO CONSTIPATION Last administered on 06/01/17 11:11; Admin Dose 30 ML; Start 05/25/17 at 16:00 Sodium Biphosphate/ Sodium Phosphate (Fleet Enema) 133 ml DAILY PRN [place] CONSTIPATION; Start 05/25/17 at 16:00 Nitroglycerin (Nitroglycerin (Sl Tab) 0.4 Mg) 1 tab Q5M PRN SL ANGINA; Start 05/25/17 at 16:00 Ondansetron HCl (Zofran Inj) 4 mg Q6H PRN IV NAUSEA AND/OR VOMITING; Start at 22:00 Alprazolam (Xanax) 0.5 mg Q8 PRN PO ANXIETY; Start 05/28/17 at 21:00 Acetaminophen/ Hydrocodone Bitart ([place] (10/325)) 2 tab Q6H PO Last administered on 06/01/17 11:11; Admin Dose 2 TAB; Start 05/29/17 at 11:30 Dexamethasone (Decadron) 4 mg Q8H PO Last administered on 06/01/17 08:25; Admin Dose 4 MG; Start 05/30/17 at 17:00; Stop 06/04/17 at 16:59 Dexamethasone (Decadron) 4 mg Q12H PO ; Start 06/05/17 at 17:00; Stop 06/10/17 at 16:59 Dexamethasone (Decadron) 4 mg DAILY PO ; Start 06/10/17 at 09:00; Stop at 08:59 Famotidine (Pepcid) 20 mg BID PO Last administered on 06/01/17t 08:24; Admin Dose 20 MG; Start 05/30/17 at 21:00 Levetiracetam (Keppra) 750 mg BID PO ; Start 06/01/17 at 21:00 SOHA CHRISTIE MD Jun 01, 2017 16:03
[2017-06-01] MEDS: DOCUSATE SODIUM 100 MG CAP PO PRN (20:46)
[2017-06-02] MEDS: DEXAMETHASONE 4 MG TAB PO SCH ×4 (01:00→17:35)
[2017-06-02 02:01] VITALS: BP 118/62; RESP 20
[2017-06-02] MEDS: MAGNESIUM HYDROXIDE 30ML CUP PO PRN (05:59)
[2017-06-02] MEDS: HYDROCODONE/APAP (10/325) TAB PO SCH ×4 (05:59→23:50)
[2017-06-02 06:29] LABS: ABNORMAL IP MESSAGE 1; BASOPHILS % 0.1 % (0.0-2.0); EOSINOPHILS % 0.1 % (0.0-7.0); HEMATOCRIT 36.2 % (37.0-47.0); HEMOGLOBIN 11.8 g/dl (12.0-16.0); LYMPHOCYTES # 1.9 10^3/ul (0.8-2.9); LYMPHOCYTES % 8.2 % (15.0-51.0); MEAN CORPUSCULAR HEMOGLOBIN 30.7 pg (29.0-33.0); MEAN CORPUSCULAR HGB CONC 32.6 g/dl (32.0-37.0); MEAN CORPUSCULAR VOLUME 94.3 fl (82.0-101.0); MEAN PLATELET VOLUME 9.1 fl (7.4-10.4); MONOCYTE # 1.9 10^3/ul (0.3-0.9); MONOCYTES % 8.2 % (0.0-11.0); NEUTROPHIL # 18.7 10^3/ul (1.6-7.5); NEUTROPHILS % 81.6 % (39.0-77.0); PLATELET COUNT 562 10^3/UL (140-415); RED BLOOD COUNT 3.84 10^6/ul (4.20-5.40); RED CELL DISTRIBUTION WIDTH 12.6 % (11.5-14.5); WHITE BLOOD COUNT 22.9 10^3/ul (4.8-10.8)
[2017-06-02 06:30] LABS: POSITIVE DIFF @See below
[2017-06-02 07:09] LABS: CREATININE 0.64 mg/dl (0.44-1.00); POTASSIUM 5.1 mmol/L (3.5-5.1)
[2017-06-02 07:43] VITALS: BP 131/62; RESP 16
[2017-06-02] MEDS: FAMOTIDINE 20 MG TAB PO SCH ×2 (09:40→20:38)
[2017-06-02] MEDS: LEVETIRACETAM 500 MG TAB PO SCH ×2 (09:40→20:38)
[2017-06-02 13:43] VITALS: BP 118/68; RESP 18
--- NOTE | 2017-06-02 14:41 | PN ---
Date/Time of Note Date/Time of Note DATE: 06/02/17 TIME: 14:40 Assessment/Plan VTE Prophylaxis VTE Prophylaxis Intervention: SCD's Lines/Catheters IV Catheter Type (from Nrsg): Saline Lock Urinary Cath still in place: No Assessment/Plan Assessment/Plan 41 yo F admitted for headaches, found to have brain mass sp resection .. path with GBM. Pt had a seizure this afternoon #seizure 2/2 edema from brain mass though edema improved on follow up imaging: increased keppra dosing from 500 to 750 BID cont decadron taper #GBM: CM consult to ensure pt is able to follow up with a neuro oncologist after discharge Pt given contact info for neuro onc teams at [facility] and [facility] PT re eval in hopes of xfer to ARU in AM Subjective 24 Hr Interval Summary Free Text/Dictation feels ok, no seizures today Exam/Review of Systems Vital Signs Vitals Vital Signs Date Time Temp Pulse Resp B/P Pulse Ox O2 Delivery O2 Flow Rate FiO2 06/02/17 13:43 98.6 70 18 118/68 97 05/31/17 15:55 Room Air Intake and Output 06/01/17 06/01/17 06/02/17 15:00 23:00 07:00 Intake Total 900 ml Balance 900 ml Exam sitting up in bed resp nonlabored no abd distension no rashes no edema Results Result Diagram: 06/02/17 0545 06/02/17 0545 Results 24 hrs Laboratory Tests Test 06/02/17 05:45 White Blood Count 22.9 H Red Blood Count 3.84 L Hemoglobin 11.8 L Hematocrit 36.2 L Mean Corpuscular Volume 94.3 Mean Corpuscular Hemoglobin 30.7 Mean Corpuscular Hemoglobin Concent 32.6 Red Cell Distribution Width 12.6 Platelet Count 562 H Mean Platelet Volume 9.1 Neutrophils % 81.6 H Lymphocytes % 8.2 L Monocytes % 8.2 Eosinophils % 0.1 Basophils % 0.1 Nucleated Red Blood Cells % 0.0 Neutrophils # 18.7 H Lymphocytes # 1.9 Monocytes # 1.9 H Eosinophils # 0.0 Basophils # 0.0 Nucleated Red Blood Cells # 0.0 Sodium Level 136 Potassium Level 5.1 Chloride Level 97 Carbon Dioxide Level 33 H Anion Gap 11 Blood Urea Nitrogen 15 Creatinine 0.64 Glucose Level 111 Calcium Level 9.0 Medications Medications Current Medications Acetaminophen (Tylenol Tab) 650 mg Q6H PRN PO PAIN LEVEL 1-3 OR FEVER Last administered on 05/28/17 11:20; Admin Dose 650 MG; Start 05/25/17 at 16:00 Docusate Sodium (Colace) 100 mg Q12H PRN PO CONSTIPATION Last administered on 06/01/17 20:46; Admin Dose 100 MG; Start 05/25/17 at 16:00 Magnesium Hydroxide (Milk Of Mag) 30 ml DAILY PRN PO CONSTIPATION Last administered on 06/02/17 05:59; Admin Dose 30 ML; Start 05/25/17 at 16:00 Sodium Biphosphate/ Sodium Phosphate (Fleet Enema) 133 ml DAILY PRN [place] CONSTIPATION; Start 05/25/17 at 16:00 Nitroglycerin (Nitroglycerin (Sl Tab) 0.4 Mg) 1 tab Q5M PRN SL ANGINA; Start 05/25/17 at 16:00 Ondansetron HCl (Zofran Inj) 4 mg Q6H PRN IV NAUSEA AND/OR VOMITING; Start at 22:00 Alprazolam (Xanax) 0.5 mg Q8 PRN PO ANXIETY; Start 05/28/17 at 21:00 Acetaminophen/ Hydrocodone Bitart ([place] (10/325)) 2 tab Q6H PO Last administered on 06/02/17 11:22; Admin Dose 2 TAB; Start 05/29/17 at 11:30 Dexamethasone (Decadron) 4 mg Q8H PO Last administered on 06/02/17 09:40; Admin Dose 4 MG; Start 05/30/17 at 17:00; Stop 06/04/17 at 16:59 Dexamethasone (Decadron) 4 mg Q12H PO ; Start 06/05/17 at 17:00; Stop 06/10/17 at 16:59 Dexamethasone (Decadron) 4 mg DAILY PO ; Start 06/10/17 at 09:00; Stop at 08:59 Famotidine (Pepcid) 20 mg BID PO Last administered on 06/02/17 09:40; Admin Dose 20 MG; Start 05/30/17 at 21:00 Levetiracetam (Keppra) 750 mg BID PO Last administered on 06/02/17 09:40; Admin Dose 750 MG; Start 06/01/17 at 21:00 SOHA CHRISTIE MD Jun 02, 2017 14:41
--- NOTE | 2017-06-02 15:14 | RADRPT ---
Vent Rate: 69 bpm RR Interval: 0 msec LA Interval: 112 msec QRS Duration: 86 msec QT Interval: 392 msec QTC Interval: 420 msec P-R-T [place]: 37 - 44 - 47 degrees Normal sinus rhythm with sinus arrhythmia Normal ECG Electronically Signed By: Palmer Hwang [id number]
[2017-06-02 20:12] VITALS: BP 112/57; RESP 18
[2017-06-03] MEDS: DEXAMETHASONE 4 MG TAB PO SCH ×2 (01:15→08:16)
[2017-06-03 02:18] VITALS: BP 97/52; RESP 16
[2017-06-03] MEDS: HYDROCODONE/APAP (10/325) TAB PO SCH (05:39)
[2017-06-03 08:09] VITALS: BP 128/63; RESP 18
[2017-06-03] MEDS: FAMOTIDINE 20 MG TAB PO SCH (08:16)
[2017-06-03] MEDS: LEVETIRACETAM 500 MG TAB PO SCH (08:16)
[2017-06-03] MEDS ORDERED: POLYETHYLENE GLYCOL 17 GM PACKET PO PRN (11:30)
[2017-06-03] MEDS ORDERED: MAGNESIUM CITRATE 300 ML BTL PO PRN (11:30)
[2017-06-03] MEDS ORDERED: LACTULOSE 30ML CUP PO PRN (11:30)
[2017-06-03] MEDS ORDERED: HYDROCODONE/APAP (10/325) TAB PO PRN (11:30)
--- NOTE | 2017-06-03 12:50 | DS ---
Date/Time of Note Date/Time of Note DATE: 06/03/17 TIME: 12:49 Discharge Summary Admission/Discharge Info Admit Date/Time May 25, 2017 at 12:36 Discharge Date/Time Discharge Diagnosis Glioblastoma multiforme Consults neurosurgery Procedures . MRI brain IMPRESSION: 1. Complex heterogeneous mass within or overlying the right parietal lobe and occipital lobe, up to 5.9 x 5.0 x 3.4 cm. The appearance is suspicious for primary brain neoplasm, possibly glioblastoma multiforme. A complex extra-axial mass such as an atypical appearing meningioma is otherwise possible. 2. Extensive adjacent vasogenic edema, and/or infiltrating tumor, involving the right parietal lobe, occipital lobe, temporal lobe, and frontal lobe, with slight extension to the splenium of the corpus callosum across midline. 3. Midline shift to the left, 9 mm. Partial effacement of the posterior right lateral ventricle. 05.28 MRI brain IMPRESSION: Status post right parieto-occipital craniotomy and resection of right parieto- occipital lobe mass with postoperative changes as described. Redemonstration of extensive vasogenic edema and/or tumor infiltration throughout the right parietal, occipital, temporal and frontal lobe with extension to the splenium of the corpus callosum extending across the midline. Midline shift to the left measuring up to 6 mm which is slightly decreased compared with the prior study. 11.24 Right Right parieto-occipital stereotactic craniotomy for resection of tumor PATH MICROSCOPIC DIAGNOSIS: A, B-Brain, right parietal-occipital tumor: -- Glioblastoma multiforme. 06.01 NNCT head IMPRESSION: Right parietal craniotomy changes with underlying right parietal resection cavity again seen with residual blood products. No evidence of new bleeding. There is mild decreased leftward midline shift which now measures 4 mm, previously 6 mm. Confluent hypoattenuation in the right posterior frontal, right parietal and right temporal white matter with involvement of the posterior body and splenium of the corpus callosum is again seen and compatible with cerebral edema and/or infiltrative tumor. Right frontal 8 mm calcified dural based lesion adjacent to the falx may correspond with a calcified meningioma. Hx of Present Illness A 41-year-old female, no significant past medical history, who presents with headache symptoms. She says her symptoms she believes began about 2 weeks ago when she says she took too much caffeine and felt "weird". Although she noticed some migraine-type of headache symptoms occurring more prominently over the last 2 days, although she denies history of migraines. She did have one episode of vomiting, nonbilious, nonbloody, today. She had been taking ibuprofen for the last few days with no relief in her symptoms, so she decided to come into the ER. She denied any night sweats. She did say she has been having some decreased appetite feeling for the last 2 weeks but has been eating her meals regularly. She does state also 15 pounds weight loss in the last month, partially intentional as she has been trying to lose weight. Denied any abdominal pain. She did have some subjective fevers and chills, as well, but no diarrhea or constipation. No upper or lower GI bleeding. No chest pain or shortness of breath. When she came in, she had imaging study of the brain that did show a 5.7 cm ill-defined right parietal lesion with marked surrounding vasogenic edema and 8 mm leftward midline shift. With differential considerations including brain mass or brain abscess, an MRI of the brain was ordered and the ER team did call the neurosurgeon who came and evaluated the patient, as well. Hospital Course Pt admitted for headaches, found to have brain mass. Pt underwent brain mass resection 05.27, pathology unfortunately returned with GBM. Test results discussed with pt and parents prior to transfer to ARU. 06.01 pt had a seizure, repeat brain imaging without new mass/bleed. Keppra was increased. No further seizure. CM referral placed for neuro oncology follow up. Steroid taper and AEDs as per neurosurgery Pt to be seen by a neuro onc within 1 week of ARU discharge Pt to f/u with her neurosurgeon within 2 weeks of ARU discharge Home Meds Active Scripts Nitrofurantoin Monohyd Macrocr* (Macrobid*) 100 Mg Capsr, 100 MG PO BID for 7 Days, CAP Prov:BRANDON LEOS PA-C 02/03/16 Reported Medications [None] No Conflict Check 03/31/12 Follow-up Plan Your insurance company should be contacting you this week with information for a brain cancer specialist (neuro oncologist) they have a contract with. If you are not given this information by the day you are scheduled to leave the rehab unit, LET YOUR DOCTORS KNOW! Please call the numbers for the neuroOnc clinics at [facility] and [facility] that I gave you as well Follow up with the brain surgeon Dr Tejada within 2 weeks Office Address [id number] [place] [address] [address] [place] [address] Office Primary Care Provider Not On Staff Doctor Time spent on discharge: > 30 minutes Copies To: CC: ENRIQUE TEJADA MD; JEANE RAMIREZ NP, ELLEN MD Jun 03, 2017 12:49
[2017-06-03 13:20] VITALS: BP 123/67; RESP 18
[2017-06-05] MEDS ORDERED: DEXAMETHASONE 4 MG TAB PO SCH (17:00)
[2017-06-10] MEDS ORDERED: DEXAMETHASONE 4 MG TAB PO SCH (09:00)
== END 2017-06-03 13:35 | DRG 25 ==
LOC: FTE 10:47 → ICU 12:36 → TEL 05-28 18:14 → MS2 06-01 22:30
PROVIDERS: ADMIT Internal Medicine; ATTEND Internal Medicine
PROC: 00B00ZX Excision of Brain, Open Approach, Diagnostic (ICD-10-PCS; principal; 2017-05-30)
PROC: 0WH Anatomical Regions, General, Insertion (ICD-10-PCS; 2017-05-30)
DX: C71.3 Malignant neoplasm of parietal lobe (principal); G93.6 Cerebral edema; N39.0 Urinary tract infection, site not specified; G40.89 Other seizures; G81.94 Hemiplegia, unspecified affecting left nondominant side; H53.462 Homonymous bilateral field defects, left side; R63.4 Abnormal weight loss
CPT/HCPCS: 36415; 70450; 70553; 80048; 80053; 80061; 81001; 82962; 83036; 83605; 83735; 84100; 84439; 84443; 84703; 85025; 85610; 85730; 86850; 86900; 86901; 86920; 87040; 87081; 87086; 93005; 96374; 96375; 96376; 97110; 97116; 97163; 97167; 97530; C1713; J0131; J0360; J0690; J0696; J1100; J1170; J1200; J1630; J1953; J2250; J2270; J2370; J2405; J2765; J3010; J7030

== ENCOUNTER 2017-05-31 18:04 | Inpatient (IN) | payer BC ==
[~2017-05-31] VITALS: Ht 175.3 cm; Wt 95.8 kg
[2017-06-03 14:15] LABS: ADD UMIC YES; UR ASCORBIC ACID 20 mg/dL (NEGATIVE); UR BACTERIA FEW /HPF (NONE SEEN); UR BILIRUBIN (Dip) NEGATIVE (NEGATIVE); UR BLOOD (Dip) 1+ mg/dL (NEGATIVE); UR CLARITY CLEAR (CLEAR); UR COLOR YELLOW (YELLOW); UR GLUCOSE (Dip) NEGATIVE (NEGATIVE); UR KETONES (Dip) NEGATIVE (NEGATIVE); UR LEUKOCYTE ESTERASE (Dip) NEGATIVE Leu/ul (NEGATIVE); UR NITRITE (Dip) NEGATIVE (NEGATIVE); UR RBC 3 /HPF (0-5); UR SPECIFIC GRAVITY (Dip) 1.021 (1.003-1.030); UR TOTAL PROTEIN (Dip) NEGATIVE (NEGATIVE); UR UROBILINOGEN (Dip) NEGATIVE (NEGATIVE)
[2017-06-03 14:34] VITALS: BP 133/77; PULSE 81; RESP 20
[2017-06-03] MEDS ORDERED: HYDROCODONE/APAP (10/325) TAB PO PRN (15:07)
[2017-06-03] MEDS ORDERED: DOCUSATE SODIUM 100 MG CAP PO PRN (15:07)
[2017-06-03] MEDS ORDERED: ACETAMINOPHEN 325 MG TAB PO PRN (15:07)
[2017-06-03] MEDS ORDERED: LACTULOSE 30ML CUP PO PRN (15:07)
[2017-06-03] MEDS ORDERED: MAGNESIUM HYDROXIDE 30ML CUP PO PRN (15:07)
[2017-06-03] MEDS ORDERED: POLYETHYLENE GLYCOL 17 GM PACKET PO PRN (15:07)
[2017-06-03] MEDS ORDERED: ALBUTEROL/IPRATROPIUM (NEB) 3 ML AMP HHN PRN (15:07)
[2017-06-03] MEDS ORDERED: MAGNESIUM CITRATE 300 ML BTL PO PRN (15:07)
[2017-06-03 16:25] VITALS: BP 124/72; RESP 16
[2017-06-03] MEDS: DEXAMETHASONE 4 MG TAB PO SCH ×2 (16:47→22:59)
[2017-06-03] MEDS: HYDROCODONE/APAP (10/325) TAB PO PRN (16:48)
[2017-06-03 20:05] VITALS: BP 114/58; RESP 18
[2017-06-03] MEDS: LEVETIRACETAM 500 MG TAB PO SCH (20:57)
[2017-06-03] MEDS: FAMOTIDINE 20 MG TAB PO SCH (20:57)
[2017-06-04] MEDS: HYDROCODONE/APAP (10/325) TAB PO PRN
[2017-06-04 02:00] VITALS: BP 120/70; RESP 18
[2017-06-04 06:18] LABS: BASOPHILS % 0.1 % (0.0-2.0); HEMATOCRIT 33.7 % (37.0-47.0); HEMOGLOBIN 10.9 g/dl (12.0-16.0); LYMPHOCYTES # 1.3 10^3/ul (0.8-2.9); MEAN CORPUSCULAR HEMOGLOBIN 30.1 pg (29.0-33.0); MEAN CORPUSCULAR HGB CONC 32.3 g/dl (32.0-37.0); MEAN CORPUSCULAR VOLUME 93.1 fl (82.0-101.0); MEAN PLATELET VOLUME 9.3 fl (7.4-10.4); MONOCYTE # 1.3 10^3/ul (0.3-0.9); NEUTROPHIL # 18.6 10^3/ul (1.6-7.5); NEUTROPHILS % 85.7 % (39.0-77.0); PLATELET COUNT 505 10^3/UL (140-415); RED BLOOD COUNT 3.62 10^6/ul (4.20-5.40); RED CELL DISTRIBUTION WIDTH 12.8 % (11.5-14.5); WHITE BLOOD COUNT 21.8 10^3/ul (4.8-10.8)
[2017-06-04] MEDS: DEXAMETHASONE 4 MG TAB PO SCH ×2 (06:21→15:19)
[2017-06-04 06:48] LABS: ALBUMIN 3.2 g/dl (3.3-4.9); BILIRUBIN,INDIRECT 0.4 mg/dl (0-1.1); BILIRUBIN,TOTAL 0.4 mg/dl (0.2-1.3); CALCIUM 9.1 mg/dl (8.4-10.2); CREATININE 0.57 mg/dl (0.44-1.00); POTASSIUM 4.1 mmol/L (3.5-5.1); TOTAL PROTEIN 6.4 g/dl (6.1-8.1)
[2017-06-04 07:30] VITALS: BP 124/71; RESP 20
[2017-06-04 08:00] VITALS: BP 124/71; PULSE 79; RESP 20
[2017-06-04] MEDS: FAMOTIDINE 20 MG TAB PO SCH ×2 (08:48→20:20)
[2017-06-04] MEDS: LEVETIRACETAM 500 MG TAB PO SCH ×2 (08:48→20:20)
[2017-06-04] MEDS ORDERED: INFLUENZA VIRUS VACCINE 0.5 ML SYG IM* ONE (09:00)
--- NOTE | 2017-06-04 11:56 | CONS ---
DATE OF ADMISSION: 06/03/2017 DATE OF CONSULTATION: 06/04/2017 REHABILITATION POST-ADMISSION PHYSICIAN EVALUATION REHABILITATION IMPAIRMENT CATEGORY: Right parietooccipital mass, status post craniotomy and tumor resection with pathology consistent with glioblastoma multiforme. ACTIVE COMORBIDITIES: 1. Visual deficit. 2. Impairments in self-care and mobility. HISTORY OF PRESENT ILLNESS: The patient is a very pleasant 41-year-old right- handed female who was admitted to [facility] with notable headache, emesis and generalized malaise with workup revealing right parietal mass with midline shift. Neurosurgery consult was obtained and the patient did undergo right parietal occipital craniotomy with resection of intraparenchymal tumor. The patient's hospital course was notable for seizure activity and impairments in self-care and mobility as compared to baseline. The patient has been cleared to transfer to the rehabilitation unit for comprehensive interdisciplinary rehab care. FUNCTIONAL HISTORY: Prior to recent events, she was independent in self-care tasks and mobility. Currently, she requires minimal assist for self-care and mobility tasks. SOCIAL HISTORY: The patient lives at home in a second floor apartment, but reports her parents will be residing with her upon discharge. 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 PAST MEDICAL HISTORY: Unremarkable. CURRENT MEDICATIONS: 1. [place] p.r.n. 2. Decadron taper. 3. Pepcid 20 mg b.i.d. 4. Keppra 750 mg b.i.d. ALLERGIES: THE PATIENT WITH NO KNOWN DRUG ALLERGIES. PHYSICAL EXAMINATION: VITAL SIGNS: The patient is currently afebrile with stable vital signs. HEENT: The patient with decreased vision. The oropharynx is clear. NECK: Supple. MUSCULOSKELETAL: The scalp incision site is clean, dry and intact. She demonstrates 5- strength in the left upper and lower extremity. She has 4+ to 5 - in the right upper and lower extremity. She is alert and oriented to person and hospital and date. Her 3-object recall is intact. PLAN: The patient has been admitted for comprehensive interdisciplinary acute rehab and is anticipated to tolerate 3 hours of daily therapy in divided doses for at least 5 out of 7 days a week. The treatment plan will include: 1. Physical therapy to focus on bed mobility, transfers, household ambulation and stair mobility with the goal of having the patient reach a modified independent level. The case has been reviewed with physical therapy and we will also do path finding tasks to review functional cognition. 2. Occupational therapy to focus on hygiene, grooming, dressing, bathing and toileting activities with the goal of having the patient reach a modified independent level, and family training. 3. Speech therapy for full cognitive assessment and retraining. The case has been discussed with speech therapy with the goal of having the patient return to an independent cognitive level in addition to assessment of work-related tasks viewing that patient was involved with cognitive tasks during her work activities including bookkeeping. 4. Rehabilitation nursing for carryover of therapeutic interventions, the goal of continent of bowel and bladder and the goal of pain adequately managed on oral medications, and patient and family education with regards to the aforementioned issues. 5. Neuropsychology for cognitive assessment, and also assistance with adjustment to disease process given the grave prognosis. REHABILITATION BARRIER: Vision. INTERVENTION FOR BARRIER: Interdisciplinary approach. ESTIMATED LENGTH OF STAY: One week. DISPOSITION GOAL: Home. I acknowledge that I performed a full physical examination on this patient within 24 hours of admission to the rehabilitation unit and believe the patient is a good candidate for comprehensive interdisciplinary rehab care and is anticipated to make reasonable goals in a reasonable period of time as outlined above. Dictated By: ANKIT WHEELER/[place] Conf#: [id number] DID#: [id number]
--- NOTE | 2017-06-04 13:02 | HP ---
Date/Time of Note Date/Time of Note DATE: 06/04/17 TIME: 12:58 Assessment/Plan VTE Prophylaxis VTE Prophylaxis Intervention: contraindicated Lines/Catheters IV [facility]from [facility] Saline Lock Urinary Cath still in place: No Assessment/Plan Problems: (1) Status post craniotomy Onset Date: ~ 05/27/2017 Status: Acute Comment: She is recuperating well postoperatively. We will continue with her treatment with speech therapy and Occupational Therapy. Discharge when stable for outpatient (2) Glioblastoma multiforme of brain Status: Acute Comment: This is a new diagnosis. The patient will be seen in [facility] consultation for opinions. Regrettably not good prognosis (3) Secondary seizure disorder Status: Acute Comment: Postoperative effect. She is on antiseizure medications and stable HPI/ROS Admit Date/Time Admit Date/Time Jun 03, 2017 at 13:49 Hx of Present Illness 41-year-old single female was admitted to the [facility] May 25, 2017. On May 27, 2017 she had craniotomy for what turns out to be glioblastoma multiform a. She is transferred to the acute rehabilitation unit yesterday for rehabilitation. Once she is stabilized she will be going for outpatient neuro oncology consultations. 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 Has an active involved family. Reports plans to go for neuro-oncology consultations once discharged to [facility] and to [facility] in [place] and to the [facility]. Alcohol Use: none Smoking Status: Never smoker Drug Use: none Exam/Review of Systems Vital Signs Vitals Vital Signs Date Time Temp Pulse Resp B/P Pulse Ox O2 Delivery O2 Flow Rate FiO2 06/04/17 08:00 98.5 79 20 124/71 100 Room Air Intake and Output 06/03/17 06/03/17 06/04/17 15:00 23:00 07:00 Intake Total 350 ml 700 ml Balance 350 ml 700 ml Exam Constitutional: alert, oriented Psych: other (Some push of speech consistent with a frontal lobe disconnect after surgery) Head: normocephalic Eyes: EOMI, nl conjunctiva, nl lids, nl sclera ENMT: mucosa pink and moist, nl external ears & nose, nl lips & teeth, nl nasal mucosa & septum Neck: non-tender, supple Respiratory: clear to auscultation, normal air movement Cardiovascular: nl pulses, regular rate and rhythm Gastrointestinal: nl liver, spleen, non-tender, soft Labs Result Diagram: 06/04/1751306/04/17513 Medications Medications Current Medications Acetaminophen (Tylenol Tab) 650 mg Q6H PRN PO PAIN LEVEL 1-3 OR FEVER; Start 06/03/17 at 15:07 Docusate Sodium (Colace) 100 mg Q12H PRN PO CONSTIPATION; Start 06/03/17 at 15: 07 Magnesium Hydroxide (Milk Of Mag) 30 ml DAILY PRN PO CONSTIPATION; Start at 15:07 Dexamethasone (Decadron) 4 mg Q8H PO Last administered on 06/04/17 06:21; Admin Dose 4 MG; Start 06/03/17 at 15:07; Stop 06/04/17 at 16:59 Dexamethasone (Decadron) 4 mg Q12H PO ; Start 06/05/17 at 17:00; Stop 06/10/17 at 16:59 Dexamethasone (Decadron) 4 mg DAILY PO ; Start 06/10/17 at 09:00; Stop at 08:59 Famotidine (Pepcid) 20 mg BID PO Last administered on 06/04/17 08:48; Admin Dose 20 MG; Start 06/03/17 at 15:07 Levetiracetam (Keppra) 750 mg BID PO Last administered on 06/04/17 08:48; Admin Dose 750 MG; Start 06/03/17 at 15:07 Acetaminophen/ Hydrocodone Bitart ([place] (10/325)) 2 tab Q6H PRN PO PAIN LEVEL 7-10; Start 06/03/17 at 15:07 Lactulose (Enulose) 20 gm DAILY PRN PO CONSTIPATION; Start 06/03/17 at 15:07 Polyethylene Glycol (Miralax) 17 gm DAILY PRN PO CONSTIPATION; Start 06/03/17 at 15:07 Magnesium Citrate (Citroma) 300 ml DAILY PRN PO CONSTIPATION; Start 06/03/17 at 15:07 Acetaminophen/ Hydrocodone Bitart ([place] (10)) 1 tab Q4H PRN PO PAIN Last administered on 06/04/17t 00:00; Admin Dose 1 TAB; Start 06/03/17 at 17:00 Influenza Virus Vaccine (Fluzone) 0.5 ml ONCE ONCE IM* ; Start 06/08/17 at 09:00 ; Stop 06/08/17 at 09:01 STEVEN MANE MD Jun 04, 2017 13:02
[2017-06-04 14:00] VITALS: BP 140/81; RESP 20
[2017-06-04 19:56] VITALS: BP 117/73; RESP 18
[2017-06-05 02:46] VITALS: BP 120/63; RESP 17
[2017-06-05 08:31] VITALS: BP 127/70; PULSE 108; RESP 20
[2017-06-05] MEDS: FAMOTIDINE 20 MG TAB PO SCH ×2 (08:50→20:24)
[2017-06-05] MEDS: LEVETIRACETAM 500 MG TAB PO SCH ×2 (08:50→20:24)
--- NOTE | 2017-06-05 09:04 | PN ---
Date/Time of Note Date/Time of Note DATE: 06/05/17 TIME: 09:02 Assessment/Plan VTE Prophylaxis VTE Prophylaxis Intervention: anti-embolic stocking Lines/Catheters [facility]from [facility] Saline Lock Urinary Cath still in place: No Assessment/Plan Problems: (1) Status post craniotomy Onset Date: ~ 05/27/2017 Status: Acute Comment: Operating nicely. She does have the diplopia but is wearing an eye patch which is assisting. Discharge planning as per the primary team of Dr. Partida at all (2) Glioblastoma multiforme of brain Status: Acute Comment: Quiescent for the time being but she will need formalized consultation and aggressive treatment. (3) Secondary seizure disorder Status: Acute Comment: Controlled with anti-epilepsy medications Subjective 24 Hr Interval Summary Free Text/Dictation Patient again quite vibrant. Wearing eye patch today. Very anxious to know the discharge plan Constitutional: no complaints ENT: no complaints Respiratory: no complaints Cardiovascular: no complaints Gastrointestinal: no complaints Neurologic: no complaints, other (No seizure activity) Exam/Review of Systems Vital Signs Vitals Vital Signs Date Time Temp Pulse Resp B/P Pulse Ox O2 Delivery O2 Flow Rate FiO2 06/05/17 08:31 97.4 108 20 127/70 99 Room Air Intake and Output 06/04/17 06/04/17 06/05/17 15:00 23:00 07:00 Intake Total 890 ml 240 ml Balance 890 ml 240 ml Exam Constitutional: alert, oriented Eyes: other (Wearing eye patch over the right eye) Neck: non-tender, supple Respiratory: clear to auscultation, normal air movement Cardiovascular: nl pulses, regular rate and rhythm Results Result Diagram: 06/04/17 0514 06/04/17 0514 Medications Medications Current Medications Acetaminophen (Tylenol Tab) 650 mg Q6H PRN PO PAIN LEVEL 1-3 OR FEVER; Start 06/03/17 at 15:07 Docusate Sodium (Colace) 100 mg Q12H PRN PO CONSTIPATION; Start 06/03/17 at 15: 07 Magnesium Hydroxide (Milk Of Mag) 30 ml DAILY PRN PO CONSTIPATION; Start at 15:07 Dexamethasone (Decadron) 4 mg Q12H PO ; Start 06/05/17 at 17:00; Stop 06/10/17 at 16:59 Dexamethasone (Decadron) 4 mg DAILY PO ; Start 06/10/17 at 09:00; Stop at 08:59 Famotidine (Pepcid) 20 mg BID PO Last administered on 06/05/17 08:50; Admin Dose 20 MG; Start 06/03/17 at 15:07 Levetiracetam (Keppra) 750 mg BID PO Last administered on 06/05/17 08:50; Admin Dose 750 MG; Start 06/03/17 at 15:07 Acetaminophen/ Hydrocodone Bitart ([place] (10/325)) 2 tab Q6H PRN PO PAIN LEVEL 7-10; Start 06/03/17 at 15:07 Lactulose (Enulose) 20 gm DAILY PRN PO CONSTIPATION; Start 06/03/17 at 15:07 Polyethylene Glycol (Miralax) 17 gm DAILY PRN PO CONSTIPATION; Start 06/03/17 at 15:07 Magnesium Citrate (Citroma) 300 ml DAILY PRN PO CONSTIPATION; Start 06/03/17 at 15:07 Acetaminophen/ Hydrocodone Bitart ([place] (10/325)) 1 tab Q4H PRN PO PAIN Last administered on 06/04/17 00:00; Admin Dose 1 TAB; Start 06/03/17 at 17:00 Influenza Virus Vaccine (Fluzone) 0.5 ml ONCE ONCE IM* ; Start 06/08/17 at 09:00 ; Stop 06/08/17 at 09:01 STEVEN MANE MD Jun 05, 2017 09:04
[2017-06-05] MEDS: DEXAMETHASONE 4 MG TAB PO SCH (17:51)
[2017-06-05 20:00] VITALS: BP 116/64; RESP 18
[2017-06-06 02:00] VITALS: BP 128/67; RESP 18
[2017-06-06] MEDS: DEXAMETHASONE 4 MG TAB PO SCH ×2 (05:21→18:04)
[2017-06-06 08:00] VITALS: BP 131/83; RESP 18
[2017-06-06] MEDS: FAMOTIDINE 20 MG TAB PO SCH ×2 (09:05→20:19)
[2017-06-06] MEDS: LEVETIRACETAM 500 MG TAB PO SCH ×2 (09:05→20:19)
--- NOTE | 2017-06-06 13:12 | CONS ---
Date/Time of Note Date/Time of Note DATE: 06/06/17 TIME: 13:12 Consult Date/Type/Reason Admit Date/Time Jun 03, 2017 at 13:49 Initial Consult Date Subjective Family conference held with patient's mother today. Mother reports that she does not want the prognosis reviewed with the patient yet. She reports that the patient is aware of the cancer diagnosis, but not of the specific type of cancer and its aggressive nature. Mother is agreeable to meet with the neuropsychologist to help with adjustment to the disease process and diagnosis/ prognosis. Objective Vital Signs Date Time Temp Pulse Resp B/P Pulse Ox O2 Delivery O2 Flow Rate FiO2 06/06/17 08:00 98.5 64 18 131/83 99 06/05/17 08:31 Room Air Intake and Output 06/05/17 06/05/17 06/06/17 15:00 23:00 07:00 Intake Total 1600 ml 240 ml Output Total 1000 ml Balance 600 ml 240 ml INTERDISCIPLINARY TEAM CONFERENCE BOWEL- Cont BLADDER-Cont SKIN- intact OT- DRESSING-sba/cga BATHING-cga TOILETING-cga PT- BED MOBILITY-sba TRANSFERS-sba AMBULATION-sba 150 feet SPEECH- COGNITION- sba A/P- Interdisciplinary team conference held today. Please see interdisciplinary sheet. Working toward d.c. on 06/10 with post discharge follow up of physical therapy, occupational therapy, RN and social work. Results/Medications Result Diagram: 06/04/17 0514 06/04/1714 Medications Current Medications Acetaminophen (Tylenol Tab) 650 mg Q6H PRN PO PAIN LEVEL 1-3 OR FEVER; Start 06/03/17 at 15:07 Docusate Sodium (Colace) 100 mg Q12H PRN PO CONSTIPATION; Start 06/03/17 at 15: 07 Magnesium Hydroxide (Milk Of Mag) 30 ml DAILY PRN PO CONSTIPATION; Start at 15:07 Dexamethasone (Decadron) 4 mg Q12H PO Last administered on 06/06/17t 05:21; Admin Dose 4 MG; Start 06/05/17 at 17:00; Stop 06/10/17 at 16:59 Dexamethasone (Decadron) 4 mg DAILY PO ; Start 06/10/17 at 09:00; Stop at 08:59 Famotidine (Pepcid) 20 mg BID PO Last administered on 06/06/17 09:05; Admin Dose 20 MG; Start 06/03/17 at 15:07 Levetiracetam (Keppra) 750 mg BID PO Last administered on 06/06/17 09:05; Admin Dose 750 MG; Start 06/03/17 at 15:07 Acetaminophen/ Hydrocodone Bitart ([place] (10/325)) 2 tab Q6H PRN PO PAIN LEVEL 7-10; Start 06/03/17 at 15:07 Lactulose (Enulose) 20 gm DAILY PRN PO CONSTIPATION; Start 06/03/17 at 15:07 Polyethylene Glycol (Miralax) 17 gm DAILY PRN PO CONSTIPATION; Start 06/03/17 at 15:07 Magnesium Citrate (Citroma) 300 ml DAILY PRN PO CONSTIPATION; Start 06/03/17 at 15:07 Acetaminophen/ Hydrocodone Bitart ([place] (10/325)) 1 tab Q4H PRN PO PAIN Last administered on 06/04/17 00:00; Admin Dose 1 TAB; Start 06/03/17 at 17:00 Influenza Virus Vaccine (Fluzone) 0.5 ml ONCE ONCE IM* ; Start 06/08/17 at 09:00 ; Stop 06/08/17 at 09:01 ANKIT MCCALL MD Jun 06, 2017 13:12
--- NOTE | 2017-06-06 15:26 | CONS ---
Date/Time of Note Date/Time of Note DATE: 06/06/17 TIME: 15:20 Assessment/Plan Assessment/Plan Chief Complaint/Hosp Course 41 year olf female with Right parietooccipital mass who is status post craniotomy and tumor resection with pathology consistent with glioblastoma multiforme, transferred to ARU for for comprehensive interdisciplinary rehab care. 1. Glioblastoma multiforme of brain Status: Acute -Status post craniotomy -Pt to be seen by a neuro onc within 1 week of ARU discharge and with her neurosurgeon within 2 weeks of ARU discharge 2.Secondary seizure disorder.Stable. -Continue antiseizure meds. -Seizure precaution 3.Self care impairment. -PT /OR eval & tx. 4. Leukocytosis secondary to #1. Monitor. 5. Anemia,likely chronic -HH stable.Monitor. Prophylaxis: Ambulation/Pepcid Patient was seen in collaboration with . Problems: Consultation Date/Type/Reason Admit Date/Time Jun 03, 2017 at 13:49 Initial Consult Date Type of Consultation: Internal medicine Reason for Consultation Medical management Exam/Review of Systems Vital Signs Vitals Vital Signs Date Time Temp Pulse Resp B/P Pulse Ox O2 Delivery O2 Flow Rate FiO2 06/06/17 08:00 98.5 64 18 131/83 99 06/05/17 08:31 Room Air Intake and Output 06/05/17 06/05/17 06/06/17 15:00 23:00 07:00 Intake Total 1600 ml 240 ml Output Total 1000 ml Balance 600 ml 240 ml Exam General: Well developed, female, not in any acute distress . HEENT: s/p CRANIOTOMY.Normocephalic, Atraumatic, No laceration or hematoma; Eyes : PEERL, Conjunctiva clear, Anicteric sclera Neck: Supple without any lymphadenopathy, nontender, no JVD, no carotid bruits, trachea midline, no thyromegaly Cardiac: S1, S2 auscultated, regular rhythm and rate, no mumurs or gallop Pulmonary: Normal respiratory effort. Chest clear to auscultation bilaterally, no adventitious breath sounds GI: Abdomen normal to inspection. Soft, non- distended, no masses, no rebound tenderness or guarding. Bowel sounds active on all four quadrants Genitourinary: Deferred Extremities: No cyanosis, clubbing, or edema. Pulses [2+] bilaterally. Full ROM on all four extremities. No focal weakness appreciated. Neurologic: Alert to person, place, time, and situation. Affect appropriate, intact sensation. Skin: Clean,dry, and intact. No ecchymosis, no rashes, or lesions Results Result Diagram: 06/04/1751306/04/17513 Medications Medications Current Medications Acetaminophen (Tylenol Tab) 650 mg Q6H PRN PO PAIN LEVEL 1-3 OR FEVER; Start 06/03/17 at 15:07 Docusate Sodium (Colace) 100 mg Q12H PRN PO CONSTIPATION; Start 06/03/17 at 15: 07 Magnesium Hydroxide (Milk Of Mag) 30 ml DAILY PRN PO CONSTIPATION; Start at 15:07 Dexamethasone (Decadron) 4 mg Q12H PO Last administered on 06/06/17 05:21; Admin Dose 4 MG; Start 06/05/17 at 17:00; Stop 06/10/17 at 16:59 Dexamethasone (Decadron) 4 mg DAILY PO ; Start 06/10/17 at 09:00; Stop at 08:59 Famotidine (Pepcid) 20 mg BID PO Last administered on 06/06/17 09:05; Admin Dose 20 MG; Start 06/03/17 at 15:07 Levetiracetam (Keppra) 750 mg BID PO Last administered on 06/06/17 09:05; Admin Dose 750 MG; Start 06/03/17 at 15:07 Acetaminophen/ Hydrocodone Bitart ([place] (10/325)) 2 tab Q6H PRN PO PAIN LEVEL 7-10; Start 06/03/17 at 15:07 Lactulose (Enulose) 20 gm DAILY PRN PO CONSTIPATION; Start 06/03/17 at 15:07 Polyethylene Glycol (Miralax) 17 gm DAILY PRN PO CONSTIPATION; Start 06/03/17 at 15:07 Magnesium Citrate (Citroma) 300 ml DAILY PRN PO CONSTIPATION; Start 06/03/17 at 15:07 Acetaminophen/ Hydrocodone Bitart ([place] (10/325)) 1 tab Q4H PRN PO PAIN Last administered on 06/04/17 00:00; Admin Dose 1 TAB; Start 06/03/17 at 17:00 Influenza Virus Vaccine (Fluzone) 0.5 ml ONCE ONCE IM* ; Start 06/08/17 at 09:00 ; Stop 06/08/17 at 09:01 JEANE RAMIREZ NP Jun 06, 2017 15:26
[2017-06-06 20:00] VITALS: BP 105/57; RESP 18
[2017-06-07] VITALS (10 sets, daily range): BP systolic 98–148; BP diastolic 57–84; PULSE 78–98; RESP 16–20
[2017-06-07] MEDS: DEXAMETHASONE 4 MG TAB PO SCH ×2 (05:47→17:21)
[2017-06-07] MEDS: LEVETIRACETAM 500 MG TAB PO SCH ×2 (09:16→20:44)
[2017-06-07] MEDS: FAMOTIDINE 20 MG TAB PO SCH ×2 (09:16→20:43)
[2017-06-07 11:29] LABS: ABNORMAL IP MESSAGE 1; BASOPHIL # 0.1 10^3/ul (0.0-0.1); BASOPHILS % 0.2 % (0.0-2.0); EOSINOPHILS % 0.1 % (0.0-7.0); HEMOGLOBIN 13.1 g/dl (12.0-16.0); LYMPHOCYTES # 0.9 10^3/ul (0.8-2.9); MEAN CORPUSCULAR HEMOGLOBIN 30.5 pg (29.0-33.0); MEAN CORPUSCULAR HGB CONC 32.8 g/dl (32.0-37.0); MEAN PLATELET VOLUME 8.8 fl (7.4-10.4); MONOCYTE # 1.3 10^3/ul (0.3-0.9); MONOCYTES % 5.6 % (0.0-11.0); NEUTROPHIL # 20.7 10^3/ul (1.6-7.5); PLATELET COUNT 463 10^3/UL (140-415); RED CELL DISTRIBUTION WIDTH 13.2 % (11.5-14.5); WHITE BLOOD COUNT 23.3 10^3/ul (4.8-10.8)
[2017-06-07 11:30] LABS: POSITIVE DIFF @See below
[2017-06-07 11:33] LABS: CALCIUM 9.4 mg/dl (8.4-10.2); CREATININE 0.65 mg/dl (0.44-1.00); POTASSIUM 3.9 mmol/L (3.5-5.1)
--- NOTE | 2017-06-07 12:36 | CONS ---
Date/Time of Note Date/Time of Note DATE: 06/07/17 TIME: 12:32 Consult Date/Type/Reason Admit Date/Time Jun 03, 2017 at 13:49 Type of Consultation: Internal medicine Subjective Patient found on floor or restroom this morning with mother by her side. Patient reports she had to use the restroom, and had notable urgency, and then felt quite qeak while she was up walking toward the commode. She reports she felt as if she had to sit immediately, and her mother assisted her to the floor. Both patient and mother deny loss of consciousness. Patient denies focal weakness or numbness. She was brought back to bed without incident, and felt better once back to bed. Objective No focal changes on neuro exam- patient awake, conversant, following commands, moving all 4 extremities. pulm-cta abd-soft Vital Signs Date Time Temp Pulse Resp B/P Pulse Ox O2 Delivery O2 Flow Rate FiO2 06/07/17 07:30 97.8 73 18 117/84 100 06/05/17 08:31 Room Air Intake and Output 06/06/17 06/06/17 06/07/17 14:59 22:59 06:59 Intake Total 1540 ml 240 ml Output Total 1000 ml Balance 540 ml 240 ml Results/Medications Result Diagram: 06/07/17 1109 06/07/17 1109 Results 24 hrs Laboratory Tests Test 06/07/17 11:09 White Blood Count 23.3 H Red Blood Count 4.30 Hemoglobin 13.1 # Hematocrit 40.0 Mean Corpuscular Volume 93.0 Mean Corpuscular Hemoglobin 30.5 Mean Corpuscular Hemoglobin Concent 32.8 Red Cell Distribution Width 13.2 Platelet Count 463 H Mean Platelet Volume 8.8 Neutrophils % 89.0 H Lymphocytes % 4.0 L Monocytes % 5.6 Eosinophils % 0.1 Basophils % 0.2 Nucleated Red Blood Cells % 0.0 Neutrophils # 20.7 H Lymphocytes # 0.9 Monocytes # 1.3 H Eosinophils # 0.0 Basophils # 0.1 Nucleated Red Blood Cells # 0.0 Sodium Level 139 Potassium Level 3.9 Chloride Level 103 Carbon Dioxide Level 26 Anion Gap 14 Blood Urea Nitrogen 18 Creatinine 0.65 Glucose Level 105 Calcium Level 9.4 Medications Current Medications Acetaminophen (Tylenol Tab) 650 mg Q6H PRN PO PAIN LEVEL 1-3 OR FEVER; Start 06/03/17 at 15:07 Docusate Sodium (Colace) 100 mg Q12H PRN PO CONSTIPATION; Start 06/03/17 at 15: 07 Magnesium Hydroxide (Milk Of Mag) 30 ml DAILY PRN PO CONSTIPATION; Start at 15:07 Dexamethasone (Decadron) 4 mg Q12H PO Last administered on 06/07/17 05:47; Admin Dose 4 MG; Start 06/05/17 at 17:00; Stop 06/10/17 at 16:59 Dexamethasone (Decadron) 4 mg DAILY PO ; Start 06/10/17 at 09:00; Stop at 08:59 Famotidine (Pepcid) 20 mg BID PO Last administered on 06/07/17 09:16; Admin Dose 20 MG; Start 06/03/17 at 15:07 Levetiracetam (Keppra) 750 mg BID PO Last administered on 06/07/17 09:16; Admin Dose 750 MG; Start 06/03/17 at 15:07 Acetaminophen/ Hydrocodone Bitart ([place] (10/325)) 2 tab Q6H PRN PO PAIN LEVEL 7-10; Start 06/03/17 at 15:07 Lactulose (Enulose) 20 gm DAILY PRN PO CONSTIPATION; Start 06/03/17 at 15:07 Polyethylene Glycol (Miralax) 17 gm DAILY PRN PO CONSTIPATION; Start 06/03/17 at 15:07 Magnesium Citrate (Citroma) 300 ml DAILY PRN PO CONSTIPATION; Start 06/03/17 at 15:07 Acetaminophen/ Hydrocodone Bitart ([place] (10/325)) 1 tab Q4H PRN PO PAIN Last administered on 06/04/17 00:00; Admin Dose 1 TAB; Start 06/03/17 at 17:00 Influenza Virus Vaccine (Fluzone) 0.5 ml ONCE ONCE IM* ; Start 06/08/17 at 09:00 ; Stop 06/08/17 at 09:01 Assessment/Plan Additional Assessment/Plan rehab- Right parietooccipital mass, status post craniotomy and tumor resection with pathology consistent with glioblastoma multiforme. Activities as tolerated Assisted fall- most likely vaso vagal episode. Will do neuro checks, and monitor BP, and check labs Visual deficit. ANKIT MCCALL MD Jun 07, 2017 12:36
[2017-06-07 13:04] LABS: ANISOCYTOSIS 1+ (0-0); MONOCYTES % (M) 6 % (0-11); PLATELET ESTIMATE NORMAL; POLYCHROMASIA 1+ (0-0)
--- NOTE | 2017-06-07 14:29 | CONS ---
Date/Time of Note Date/Time of Note DATE: 06/07/17 TIME: 14:28 Assessment/Plan Assessment/Plan Chief Complaint/Hosp Course 41 year olf female with Right parietooccipital mass who is status post craniotomy and tumor resection with pathology consistent with glioblastoma multiforme, transferred to ARU for for comprehensive interdisciplinary rehab care. 1. Glioblastoma multiforme of brain Status: Acute -Status post craniotomy -Pt to be seen by a neuro onc within 1 week of ARU discharge and with her neurosurgeon within 2 weeks of ARU discharge 2.Secondary seizure disorder.Stable. -Continue antiseizure meds. -Seizure precaution 3.Self care impairment. -PT /OR eval & tx. 4. Leukocytosis secondary to #1. Monitor. 5. Anemia,likely chronic -HH stable.Monitor. Prophylaxis: Ambulation/Pepcid Patient was seen in collaboration with . Problems: Consultation Date/Type/Reason Admit Date/Time Jun 03, 2017 at 13:49 Type of Consultation: Internal medicine 24 HR Interval Summary Free Text/Dictation Spoke to patient and her mother at bedside. Patient is doing well overall. She is not in acute distress. Exam/Review of Systems Vital Signs Vitals Vital Signs Date Time Temp Pulse Resp B/P Pulse Ox O2 Delivery O2 Flow Rate FiO2 06/07/17 13:01 98.0 90 18 125/75 98 Room Air Intake and Output 06/06/17 06/06/17 06/07/17 15:00 23:00 07:00 Intake Total 1540 ml 240 ml Output Total 1000 ml Balance 540 ml 240 ml Exam General: Well developed, female, not in any acute distress . HEENT: s/p CRANIOTOMY.Normocephalic, Atraumatic, No laceration or hematoma; Eyes : PEERL, Conjunctiva clear, Anicteric sclera Neck: Supple without any lymphadenopathy, nontender, no JVD, no carotid bruits, trachea midline, no thyromegaly Cardiac: S1, S2 auscultated, regular rhythm and rate, no mumurs or gallop Pulmonary: Normal respiratory effort. Chest clear to auscultation bilaterally, no adventitious breath sounds GI: Abdomen normal to inspection. Soft, non- distended, no masses, no rebound tenderness or guarding. Bowel sounds active on all four quadrants Genitourinary: Deferred Extremities: No cyanosis, clubbing, or edema. Pulses [2+] bilaterally. Full ROM on all four extremities. No focal weakness appreciated. Neurologic: Alert to person, place, time, and situation. Affect appropriate, intact sensation. Skin: Clean,dry, and intact. No ecchymosis, no rashes, or lesions Results Result Diagram: 06/07/17 1109 06/07/17 1109 Results 24 hrs Laboratory Tests Test 06/07/17 11:09 White Blood Count 23.3 H Red Blood Count 4.30 Hemoglobin 13.1 # Hematocrit 40.0 Mean Corpuscular Volume 93.0 Mean Corpuscular Hemoglobin 30.5 Mean Corpuscular Hemoglobin Concent 32.8 Red Cell Distribution Width 13.2 Platelet Count 463 H Mean Platelet Volume 8.8 Neutrophils % 89.0 H Segmented Neutrophils % (Manual) 90 H Lymphocytes % 4.0 L Lymphocytes % (Manual) 4 L Monocytes % 5.6 Monocytes % (Manual) 6 Eosinophils % 0.1 Basophils % 0.2 Nucleated Red Blood Cells % 0.0 Neutrophils # 20.7 H Absolute Lymphocytes (Manual) 0.9 Lymphocytes # 0.9 Monocytes # 1.3 H Absolute Monocytes (Manual) 1.3 H Eosinophils # 0.0 Basophils # 0.1 Nucleated Red Blood Cells # 0.0 Platelet Estimate NORMAL Polychromasia 1+ Anisocytosis 1+ Sodium Level 139 Potassium Level 3.9 Chloride Level 103 Carbon Dioxide Level 26 Anion Gap 14 Blood Urea Nitrogen 18 Creatinine 0.65 Glucose Level 105 Calcium Level 9.4 Medications Medications Current Medications Acetaminophen (Tylenol Tab) 650 mg Q6H PRN PO PAIN LEVEL 1-3 OR FEVER; Start 06/03/17 at 15:07 Docusate Sodium (Colace) 100 mg Q12H PRN PO CONSTIPATION; Start 06/03/17 at 15: 07 Magnesium Hydroxide (Milk Of Mag) 30 ml DAILY PRN PO CONSTIPATION; Start at 15:07 Dexamethasone (Decadron) 4 mg Q12H PO Last administered on 06/07/17t 05:47; Admin Dose 4 MG; Start 06/05/17 at 17:00; Stop 06/10/17 at 16:59 Dexamethasone (Decadron) 4 mg DAILY PO ; Start 06/10/17 at 09:00; Stop at 08:59 Famotidine (Pepcid) 20 mg BID PO Last administered on 06/07/17 09:16; Admin Dose 20 MG; Start 06/03/17 at 15:07 Levetiracetam (Keppra) 750 mg BID PO Last administered on 06/07/17 09:16; Admin Dose 750 MG; Start 06/03/17 at 15:07 Acetaminophen/ Hydrocodone Bitart ([place] (10/325)) 2 tab Q6H PRN PO PAIN LEVEL 7-10; Start 06/03/17 at 15:07 Lactulose (Enulose) 20 gm DAILY PRN PO CONSTIPATION; Start 06/03/17 at 15:07 Polyethylene Glycol (Miralax) 17 gm DAILY PRN PO CONSTIPATION; Start 06/03/17 at 15:07 Magnesium Citrate (Citroma) 300 ml DAILY PRN PO CONSTIPATION; Start 06/03/17 at 15:07 Acetaminophen/ Hydrocodone Bitart ([place] (10/325)) 1 tab Q4H PRN PO PAIN Last administered on 06/04/17 00:00; Admin Dose 1 TAB; Start 06/03/17 at 17:00 Influenza Virus Vaccine (Fluzone) 0.5 ml ONCE ONCE IM* ; Start 06/08/17 at 09:00 ; Stop 06/08/17 at 09:01 JEANE RAMIREZ NP Jun 07, 2017 14:29
[2017-06-07 18:15] LABS: ADD UMIC YES; UR ASCORBIC ACID NEGATIVE (NEGATIVE); UR BILIRUBIN (Dip) NEGATIVE (NEGATIVE); UR BLOOD (Dip) 1+ mg/dL (NEGATIVE); UR CLARITY CLEAR (CLEAR); UR COLOR YELLOW (YELLOW); UR GLUCOSE (Dip) NEGATIVE (NEGATIVE); UR KETONES (Dip) NEGATIVE (NEGATIVE); UR LEUKOCYTE ESTERASE (Dip) NEGATIVE Leu/ul (NEGATIVE); UR NITRITE (Dip) NEGATIVE (NEGATIVE); UR RBC 1 /HPF (0-5); UR SPECIFIC GRAVITY (Dip) 1.013 (1.003-1.030); UR TOTAL PROTEIN (Dip) NEGATIVE (NEGATIVE); UR UROBILINOGEN (Dip) NEGATIVE (NEGATIVE)
[2017-06-08 02:00] VITALS: BP 122/67; RESP 18
[2017-06-08] MEDS: DEXAMETHASONE 4 MG TAB PO SCH ×2 (05:11→17:51)
[2017-06-08 07:30] VITALS: BP 131/69; RESP 20
[2017-06-08] MEDS: FAMOTIDINE 20 MG TAB PO SCH ×2 (08:37→20:51)
[2017-06-08] MEDS: HYDROCODONE/APAP (10/325) TAB PO PRN (08:38)
[2017-06-08] MEDS: LEVETIRACETAM 500 MG TAB PO SCH ×2 (08:38→20:51)
[2017-06-08] MEDS ORDERED: INFLUENZA VIRUS VACCINE 0.5 ML SYG IM* ONE (09:00)
[2017-06-08 11:17] LABS: ABNORMAL IP MESSAGE 1; BASOPHILS % 0.1 % (0.0-2.0); HEMATOCRIT 37.4 % (37.0-47.0); HEMOGLOBIN 12.2 g/dl (12.0-16.0); LYMPHOCYTES # 0.7 10^3/ul (0.8-2.9); LYMPHOCYTES % 3.1 % (15.0-51.0); MEAN CORPUSCULAR HEMOGLOBIN 30.4 pg (29.0-33.0); MEAN CORPUSCULAR HGB CONC 32.6 g/dl (32.0-37.0); MEAN CORPUSCULAR VOLUME 93.3 fl (82.0-101.0); MEAN PLATELET VOLUME 10.1 fl (7.4-10.4); MONOCYTE # 0.9 10^3/ul (0.3-0.9); MONOCYTES % 4.1 % (0.0-11.0); NEUTROPHIL # 20.5 10^3/ul (1.6-7.5); NEUTROPHILS % 91.4 % (39.0-77.0); PLATELET COUNT 374 10^3/UL (140-415); RED BLOOD COUNT 4.01 10^6/ul (4.20-5.40); RED CELL DISTRIBUTION WIDTH 13.6 % (11.5-14.5); WHITE BLOOD COUNT 22.4 10^3/ul (4.8-10.8)
[2017-06-08 11:32] LABS: POSITIVE DIFF @See below
--- NOTE | 2017-06-08 11:58 | CONS ---
Date/Time of Note Date/Time of Note DATE: 06/08/17 TIME: 11:58 Consult Date/Type/Reason Admit Date/Time Jun 03, 2017 at 13:49 Type of Consultation: Internal medicine Subjective Long d/w mother regarding patient's adjustment to disease process. Mother agreeable to meet with Dr. Larose today to assist in the adjustment process. Patient pleased with Abdominal binder for OOB activities Objective pulm-cta sba ambulation Vital Signs Date Time Temp Pulse Resp B/P Pulse Ox O2 Delivery O2 Flow Rate FiO2 06/08/17 07:30 98.5 112 20 131/69 99 06/07/17 18:09 Room Air Intake and Output 06/07/17 06/07/17 06/08/17 15:00 23:00 07:00 Intake Total 1100 ml 360 ml Balance 1100 ml 360 ml Results/Medications Result Diagram: 06/08/17 1037 06/07/17 1109 Results 24 hrs Laboratory Tests Test 06/07/17 17:00 06/08/17 10:37 Urine Color YELLOW Urine Clarity CLEAR Urine pH 5.0 Urine Specific [place] 1.013 Urine Ketones NEGATIVE Urine Nitrite NEGATIVE Urine Bilirubin NEGATIVE Urine Urobilinogen NEGATIVE Urine Leukocyte Esterase NEGATIVE Urine Microscopic RBC 1 Urine Microscopic WBC 1 Urine Hemoglobin 1+ H Urine Glucose NEGATIVE Urine Total Protein NEGATIVE White Blood Count 22.4 H Red Blood Count 4.01 L Hemoglobin 12.2 Hematocrit 37.4 Mean Corpuscular Volume 93.3 Mean Corpuscular Hemoglobin 30.4 Mean Corpuscular Hemoglobin Concent 32.6 Red Cell Distribution Width 13.6 Platelet Count 374 Mean Platelet Volume 10.1 Neutrophils % 91.4 H Lymphocytes % 3.1 L Monocytes % 4.1 Eosinophils % 0.0 Basophils % 0.1 Nucleated Red Blood Cells % 0.0 Neutrophils # 20.5 H Lymphocytes # 0.7 L Monocytes # 0.9 Eosinophils # 0.0 Basophils # 0.0 Nucleated Red Blood Cells # 0.0 Medications Current Medications Acetaminophen (Tylenol Tab) 650 mg Q6H PRN PO PAIN LEVEL 1-3 OR FEVER; Start 06/03/17 at 15:07 Docusate Sodium (Colace) 100 mg Q12H PRN PO CONSTIPATION; Start 06/03/17 at 15: 07 Magnesium Hydroxide (Milk Of Mag) 30 ml DAILY PRN PO CONSTIPATION; Start at 15:07 Dexamethasone (Decadron) 4 mg Q12H PO Last administered on 06/08/17 05:11; Admin Dose 4 MG; Start 06/05/17 at 17:00; Stop 06/10/17 at 16:59 Dexamethasone (Decadron) 4 mg DAILY PO ; Start 06/10/17 at 09:00; Stop at 08:59 Famotidine (Pepcid) 20 mg BID PO Last administered on 06/08/17 08:37; Admin Dose 20 MG; Start 06/03/17 at 15:07 Levetiracetam (Keppra) 750 mg BID PO Last administered on 06/08/17 08:38; Admin Dose 750 MG; Start 06/03/17 at 15:07 Acetaminophen/ Hydrocodone Bitart ([place] (10/325)) 2 tab Q6H PRN PO PAIN LEVEL 7-10; Start 06/03/17 at 15:07 Lactulose (Enulose) 20 gm DAILY PRN PO CONSTIPATION; Start 06/03/17 at 15:07 Polyethylene Glycol (Miralax) 17 gm DAILY PRN PO CONSTIPATION; Start 06/03/17 at 15:07 Magnesium Citrate (Citroma) 300 ml DAILY PRN PO CONSTIPATION; Start 06/03/17 at 15:07 Acetaminophen/ Hydrocodone Bitart ([place] (10/325)) 1 tab Q4H PRN PO PAIN Last administered on 06/08/17 08:38; Admin Dose 1 TAB; Start 06/03/17 at 17:00 Assessment/Plan Additional Assessment/Plan rehab- Right parietooccipital mass, status post craniotomy and tumor resection with pathology consistent with glioblastoma multiforme. Continue interdisciplinary rehab Psychol/social- Dr Larose to [place] with full cognitive and psychological evaluation and adjustment to diesase process. Visual deficit. ANKIT MCCALL MD Jun 08, 2017 11:58
--- NOTE | 2017-06-08 13:16 | CONS ---
Date/Time of Note Date/Time of Note DATE: 06/08/17 TIME: 13:14 Assessment/Plan Assessment/Plan Chief Complaint/Hosp Course 41 year olf female with Right parietooccipital mass who is status post craniotomy and tumor resection with pathology consistent with glioblastoma multiforme, transferred to ARU for for comprehensive interdisciplinary rehab care. 1. Glioblastoma multiforme of brain Status: Acute -Status post craniotomy -Pt to be seen by a neuro onc within 1 week of ARU discharge and with her neurosurgeon within 2 weeks of ARU discharge 2.Secondary seizure disorder.Stable. -Continue antiseizure meds. -Seizure precaution 3.Self care impairment. -PT /OT eval & tx. 4. Leukocytosis secondary to #1. Monitor. 5. Anemia,likely chronic -HH stable.Monitor. Prophylaxis: Ambulation/Pepcid Patient was seen in collaboration with . Problems: Consultation Date/Type/Reason Admit Date/Time Jun 03, 2017 at 13:49 Type of Consultation: Internal medicine 24 HR Interval Summary Free Text/Dictation No acute distress. No overnight episodes. Exam/Review of Systems Vital Signs Vitals Vital Signs Date Time Temp Pulse Resp B/P Pulse Ox O2 Delivery O2 Flow Rate FiO2 06/08/17 07:30 98.5 112 20 131/69 99 06/07/17 18:09 Room Air Intake and Output 06/07/17 06/07/17 06/08/17 15:00 23:00 07:00 Intake Total 1100 ml 360 ml Balance 1100 ml 360 ml Exam General: Well developed, female, not in any acute distress . HEENT: s/p CRANIOTOMY.Normocephalic, Atraumatic, No laceration or hematoma; Eyes : PEERL, Conjunctiva clear, Anicteric sclera Neck: Supple without any lymphadenopathy, nontender, no JVD, no carotid bruits, trachea midline, no thyromegaly Cardiac: S1, S2 auscultated, regular rhythm and rate, no mumurs or gallop Pulmonary: Normal respiratory effort. Chest clear to auscultation bilaterally, no adventitious breath sounds GI: Abdomen normal to inspection. Soft, non- distended, no masses, no rebound tenderness or guarding. Bowel sounds active on all four quadrants Genitourinary: Deferred Extremities: No cyanosis, clubbing, or edema. Pulses [2+] bilaterally. Full ROM on all four extremities. No focal weakness appreciated. Neurologic: Alert to person, place, time, and situation. Affect appropriate, intact sensation. Skin: Clean,dry, and intact. No ecchymosis, no rashes, or lesions Results Result Diagram: 06/08/17 1037 06/07/17 1109 Results 24 hrs Laboratory Tests Test 06/07/17 17:00 06/08/17 10:37 Urine Color YELLOW Urine Clarity CLEAR Urine pH 5.0 Urine Specific [place] 1.013 Urine Ketones NEGATIVE Urine Nitrite NEGATIVE Urine Bilirubin NEGATIVE Urine Urobilinogen NEGATIVE Urine Leukocyte Esterase NEGATIVE Urine Microscopic RBC 1 Urine Microscopic WBC 1 Urine Hemoglobin 1+ H Urine Glucose NEGATIVE Urine Total Protein NEGATIVE White Blood Count 22.4 H Red Blood Count 4.01 L Hemoglobin 12.2 Hematocrit 37.4 Mean Corpuscular Volume 93.3 Mean Corpuscular Hemoglobin 30.4 Mean Corpuscular Hemoglobin Concent 32.6 Red Cell Distribution Width 13.6 Platelet Count 374 Mean Platelet Volume 10.1 Neutrophils % 91.4 H Lymphocytes % 3.1 L Monocytes % 4.1 Eosinophils % 0.0 Basophils % 0.1 Nucleated Red Blood Cells % 0.0 Neutrophils # 20.5 H Lymphocytes # 0.7 L Monocytes # 0.9 Eosinophils # 0.0 Basophils # 0.0 Nucleated Red Blood Cells # 0.0 Medications Medications Current Medications Acetaminophen (Tylenol Tab) 650 mg Q6H PRN PO PAIN LEVEL 1-3 OR FEVER; Start 06/03/17 at 15:07 Docusate Sodium (Colace) 100 mg Q12H PRN PO CONSTIPATION; Start 06/03/17 at 15: 07 Magnesium Hydroxide (Milk Of Mag) 30 ml DAILY PRN PO CONSTIPATION; Start at 15:07 Dexamethasone (Decadron) 4 mg Q12H PO Last administered on 06/08/17 05:11; Admin Dose 4 MG; Start 06/05/17 at 17:00; Stop 06/10/17 at 16:59 Dexamethasone (Decadron) 4 mg DAILY PO ; Start 06/10/17 at 09:00; Stop at 08:59 Famotidine (Pepcid) 20 mg BID PO Last administered on 06/08/17 08:37; Admin Dose 20 MG; Start 06/03/17 at 15:07 Levetiracetam (Keppra) 750 mg BID PO Last administered on 06/08/17 08:38; Admin Dose 750 MG; Start 06/03/17 at 15:07 Acetaminophen/ Hydrocodone Bitart ([place] (10/325)) 2 tab Q6H PRN PO PAIN LEVEL 7-10; Start 06/03/17 at 15:07 Lactulose (Enulose) 20 gm DAILY PRN PO CONSTIPATION; Start 06/03/17 at 15:07 Polyethylene Glycol (Miralax) 17 gm DAILY PRN PO CONSTIPATION; Start 06/03/17 at 15:07 Magnesium Citrate (Citroma) 300 ml DAILY PRN PO CONSTIPATION; Start 06/03/17 at 15:07 Acetaminophen/ Hydrocodone Bitart ([place] (10/325)) 1 tab Q4H PRN PO PAIN Last administered on 06/08/17 08:38; Admin Dose 1 TAB; Start 06/03/17 at 17:00 JEANE RAMIREZ NP Jun 08, 2017 13:16
[2017-06-08 14:00] VITALS: BP 119/73; RESP 20
[2017-06-08 20:00] VITALS: BP 115/62; RESP 18
--- NOTE | 2017-06-09 01:36 | CONS ---
DATE OF ADMISSION: 06/03/2017 DATE OF CONSULTATION: 06/08/2017 TYPE OF CONSULTATION: Psychological. REFERRING PHYSICIAN: Ankit Ryan MD CONSULTING PSYCHOLOGIST: Ilir Santamaria, PhD REASON FOR CONSULTATION: This consultation was requested by Dr. Helga Ryan in order to evaluate the cognitive and emotional functioning of this patient related to her present medical condition. HISTORY OF PRESENT ILLNESS: The patient is a 41-year-old female. The patient was admitted after having headaches and some seizure activity. It was found that the patient had a brain mass and a craniotomy was conducted. It was found that this patient has a glioblastoma. The patient is currently unaware that she has a glioblastoma. The patient's mother, who was interviewed as well during this consultation separately, said that she did not want her daughter to know at this time that she had a glioblastoma. I talked directly to the mother and we discussed how the patient should be informed and when she should be informed that it is what appears to be a terminal condition. The patient's mother was very tearful, but did say that she was prepared to finally tell her daughter this evening when her returned and that they would tell her together. The patient herself had optimistic views that she was going to be able to recover and get better. The patient is motivated to get better and overall the patient is in somewhat denial, even of the nature of what happened to her in regard to her initial brain surgery. FAMILY AND SOCIAL HISTORY: The patient lives in her own apartment and did want to return there. The patient's parents live in [place] are out here as a result of what has happened to her. The patient does want to return to her own apartment, but is still unaware at the present time what medical problems she really does have She will be on, but able to actually live on her own. Parents want to take her back to [place] and this is unclear as to outcome at the present time. MEDICATIONS: The patient is currently not on any psychotropic medication. Should the patient become depressed and facing the issues of her mortality, then an antidepressant medication may be considered to help her deal with some of these issues. SUBSTANCE USE: The patient reports no use of alcohol or other drugs. The patient reports that she does not smoke. MENTAL STATUS EXAMINATION: APPEARANCE: The patient was seen in bed. She is of average height and weight. The patient is right-handed. BEHAVIOR: The patient was cooperative during the consultation. The patient did attempt to answer all questions presented to her by the interviewer. MOOD AND AFFECT: The patient's mood appears to be slightly concerned, but is almost a [place] and upbeat attitude that she can get better. The patient is unaware of her present medical diagnosis. PERCEPTION: The patient reports no hallucinations or delusions. The patient was alert to person, place, situation and time. MEMORY AND COGNITION: The patient's memory and cognition appear to be intact. She was able to remember recent and remote events. The patient was able to say the name of the hospital. The patient was able to say the month and the year. The patient was able to say who the [employer] is and who the governor of the state is. The patient could not say who the mayor of the [facility] is. Patient was able to spell "world" backwards on her second try. The patient was able to do 5 serial-7 subtractions from 100 without error. INTELLIGENCE: Intelligence appears to fall in the average range. INSIGHT: Fair. JUDGMENT: Fair. THOUGHT CONTENT: The patient is concerned about her present medical condition, but is unaware of how severe her present condition is. She does believe that she can get better and is motivated to try and get better. The patient's parents initially asked that the patient not be told, and in meeting with the patient's mother today I tried to work with her on how they might be able to inform the patient as to what her diagnosis is. DISCUSSION: The patient can likely benefit from some cognitive/behavioral psychotherapy while she is on the unit. This psychotherapy would help her deal with what is actually happening to her, and dealing with her own mortality. This needs to be done after she is informed about what is happening to her. She may benefit from some outpatient treatment in dealing with her mortality. DIAGNOSTIC IMPRESSION: F06.31. 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 Thank you very much, Dr. Helga Ryan, for referring this individual. Please do not hesitate to call if you have additional questions. Dictated By: ILIR SANTAMARIA PHD [facility] Conf#: [id number] DID#: [id number] CC: ANIKT RYAN MD;*EndCC* MTDD
[2017-06-09 02:00] VITALS: BP 120/65; RESP 18
[2017-06-09] MEDS: DEXAMETHASONE 4 MG TAB PO SCH ×2 (05:19→17:39)
[2017-06-09 05:23] VITALS: BP 111/71; PULSE 78; RESP 16
[2017-06-09 08:00] VITALS: BP 123/68; RESP 18
[2017-06-09] MEDS: FAMOTIDINE 20 MG TAB PO SCH ×2 (09:32→20:20)
[2017-06-09] MEDS: LEVETIRACETAM 500 MG TAB PO SCH ×2 (09:32→20:20)
--- NOTE | 2017-06-09 11:03 | CONS ---
Date/Time of Note Date/Time of Note DATE: 06/09/17 TIME: 10:58 Consult Date/Type/Reason Admit Date/Time Jun 03, 2017 at 13:49 Type of Consultation: Internal medicine Subjective Mother reports that she and her discussed diagnosis and prognosis with patient, and that they will also follow up with oncology regarding prognosis and treatment options. Objective pulm-cta sba ambulation Vital Signs Date Time Temp Pulse Resp B/P Pulse Ox O2 Delivery O2 Flow Rate FiO2 06/09/17 05:23 98.4 78 16 111/71 100 Room Air Intake and Output 06/08/17 06/08/17 06/09/17 14:59 22:59 06:59 Intake Total 840 ml 700 ml Balance 840 ml 700 ml Results/Medications Result Diagram: 06/08/17 1037 06/07/17 1109 Medications Current Medications Acetaminophen (Tylenol Tab) 650 mg Q6H PRN PO PAIN LEVEL 1-3 OR FEVER; Start 06/03/17 at 15:07 Docusate Sodium (Colace) 100 mg Q12H PRN PO CONSTIPATION; Start 06/03/17 at 15: 07 Magnesium Hydroxide (Milk Of Mag) 30 ml DAILY PRN PO CONSTIPATION; Start at 15:07 Dexamethasone (Decadron) 4 mg Q12H PO Last administered on 06/09/17 05:19; Admin Dose 4 MG; Start 06/05/17 at 17:00; Stop 06/10/17 at 16:59 Dexamethasone (Decadron) 4 mg DAILY PO ; Start 06/10/17 at 09:00; Stop at 08:59 Famotidine (Pepcid) 20 mg BID PO Last administered on 06/09/17 09:32; Admin Dose 20 MG; Start 06/03/17 at 15:07 Levetiracetam (Keppra) 750 mg BID PO Last administered on 06/09/17 09:32; Admin Dose 750 MG; Start 06/03/17 at 15:07 Acetaminophen/ Hydrocodone Bitart ([place] (10/325)) 2 tab Q6H PRN PO PAIN LEVEL 7-10; Start 06/03/17 at 15:07 Lactulose (Enulose) 20 gm DAILY PRN PO CONSTIPATION; Start 06/03/17 at 15:07 Polyethylene Glycol (Miralax) 17 gm DAILY PRN PO CONSTIPATION; Start 06/03/17 at 15:07 Magnesium Citrate (Citroma) 300 ml DAILY PRN PO CONSTIPATION; Start 06/03/17 at 15:07 Acetaminophen/ Hydrocodone Bitart ([place] (10325)) 1 tab Q4H PRN PO PAIN Last administered on 06/08/17t 08:38; Admin Dose 1 TAB; Start 06/03/17 at 17:00 Assessment/Plan Additional Assessment/Plan Rehab- Right parietooccipital mass, status post craniotomy and tumor resection with pathology consistent with glioblastoma multiforme. Continue current rehab program, complete family training, and anticipate dc tomorrow Psycho/social- continue supportive care Visual deficit. ANKIT MCCALL MD Jun 09, 2017 11:03
--- NOTE | 2017-06-09 13:52 | CONS ---
Date/Time of Note Date/Time of Note DATE: 06/09/17 TIME: 13:50 Assessment/Plan Assessment/Plan Chief Complaint/Hosp Course 41 year olf female with Right parietooccipital mass who is status post craniotomy and tumor resection with pathology consistent with glioblastoma multiforme, transferred to ARU for for comprehensive interdisciplinary rehab care. 1. Glioblastoma multiforme of brain Status: Acute -Status post craniotomy -Pt to be seen by a neuro onc within 1 week of ARU discharge and with her neurosurgeon within 2 weeks of ARU discharge 2.Secondary seizure disorder.Stable. -Continue antiseizure meds. -Seizure precaution 3.Self care impairment. -PT /OT eval & tx. 4. Leukocytosis secondary to #1. Monitor. 5. Anemia,likely chronic -HH stable.Monitor. 6. Mood disorder with depressive features secondary to #1. -Recommend outpatient psychotherapy evaluation for coping with current illness. Prophylaxis: Ambulation/Pepcid Patient was seen in collaboration with . Problems: Consultation Date/Type/Reason Admit Date/Time Jun 03, 2017 at 13:49 Type of Consultation: Internal medicine 24 HR Interval Summary Free Text/Dictation Overall patient doing well. She had psychiatric evaluation. Exam/Review of Systems Vital Signs Vitals Vital Signs Date Time Temp Pulse Resp B/P Pulse Ox O2 Delivery O2 Flow Rate FiO2 06/09/17 08:00 97.9 93 18 123/68 97 06/09/17 05:23 Room Air Intake and Output 06/08/17 06/08/17 06/09/17 15:00 23:00 07:00 Intake Total 840 ml 700 ml Balance 840 ml 700 ml Exam General: Well developed, female, not in any acute distress . HEENT: s/p CRANIOTOMY.Normocephalic, Atraumatic, No laceration or hematoma; Eyes : PEERL, Conjunctiva clear, Anicteric sclera Neck: Supple without any lymphadenopathy, nontender, no JVD, no carotid bruits, trachea midline, no thyromegaly Cardiac: S1, S2 auscultated, regular rhythm and rate, no mumurs or gallop Pulmonary: Normal respiratory effort. Chest clear to auscultation bilaterally, no adventitious breath sounds GI: Abdomen normal to inspection. Soft, non- distended, no masses, no rebound tenderness or guarding. Bowel sounds active on all four quadrants Genitourinary: Deferred Extremities: No cyanosis, clubbing, or edema. Pulses [2+] bilaterally. Full ROM on all four extremities. No focal weakness appreciated. Neurologic: Alert to person, place, time, and situation. Affect appropriate, intact sensation. Skin: Clean,dry, and intact. No ecchymosis, no rashes, or lesions Results Result Diagram: 06/08/17 1037 06/07/17 1109 Medications Medications Current Medications Acetaminophen (Tylenol Tab) 650 mg Q6H PRN PO PAIN LEVEL 1-3 OR FEVER; Start 06/03/17 at 15:07 Docusate Sodium (Colace) 100 mg Q12H PRN PO CONSTIPATION; Start 06/03/17 at 15: 07 Magnesium Hydroxide (Milk Of Mag) 30 ml DAILY PRN PO CONSTIPATION; Start at 15:07 Dexamethasone (Decadron) 4 mg Q12H PO Last administered on 06/09/17 05:19; Admin Dose 4 MG; Start 06/05/17 at 17:00; Stop 06/10/17 at 16:59 Dexamethasone (Decadron) 4 mg DAILY PO ; Start 06/10/17 at 09:00; Stop at 08:59 Famotidine (Pepcid) 20 mg BID PO Last administered on 06/09/17 09:32; Admin Dose 20 MG; Start 06/03/17 at 15:07 Levetiracetam (Keppra) 750 mg BID PO Last administered on 06/09/17 09:32; Admin Dose 750 MG; Start 06/03/17 at 15:07 Acetaminophen/ Hydrocodone Bitart ([place] (10/325)) 2 tab Q6H PRN PO PAIN LEVEL 7-10; Start 06/03/17 at 15:07 Lactulose (Enulose) 20 gm DAILY PRN PO CONSTIPATION; Start 06/03/17 at 15:07 Polyethylene Glycol (Miralax) 17 gm DAILY PRN PO CONSTIPATION; Start 06/03/17 at 15:07 Magnesium Citrate (Citroma) 300 ml DAILY PRN PO CONSTIPATION; Start 06/03/17 at 15:07 Acetaminophen/ Hydrocodone Bitart ([place] (10/325)) 1 tab Q4H PRN PO PAIN Last administered on 06/08/17t 08:38; Admin Dose 1 TAB; Start 06/03/17 at 17:00 JEANE RAMIREZ NP Jun 09, 2017 13:52
[2017-06-09 19:28] VITALS: BP 126/52; RESP 18
[2017-06-10] MEDS: DEXAMETHASONE 4 MG TAB PO SCH (06:09)
[2017-06-10 07:00] VITALS: BP 133/76; RESP 18
[2017-06-10] MEDS: LEVETIRACETAM 500 MG TAB PO SCH (08:42)
[2017-06-10] MEDS: FAMOTIDINE 20 MG TAB PO SCH (08:42)
[2017-06-10] MEDS ORDERED: DEXAMETHASONE 4 MG TAB PO SCH (09:00)
== END 2017-06-10 12:06 | disposition home health service (06) | DRG 949 ==
LOC: VRC 06-03 13:49
PROVIDERS: ADMIT Physical Medicine & Rehabilitation; ATTEND Internal Medicine Pulmonary Disease
PROC: F07Z9FZ Gait Training/Functional Ambulation Treatment using Assistive, Adaptive, Supportive or Protective Equipment (ICD-10-PCS; principal; 2017-06-03)
PROC: F07Z8FZ Transfer Training Treatment using Assistive, Adaptive, Supportive or Protective Equipment (ICD-10-PCS; 2017-06-03)
PROC: F07Z5FZ Bed Mobility Treatment using Assistive, Adaptive, Supportive or Protective Equipment (ICD-10-PCS; 2017-06-03)
PROC: F08Z2FZ Grooming/Personal Hygiene Treatment using Assistive, Adaptive, Supportive or Protective Equipment (ICD-10-PCS; 2017-06-03)
PROC: F08Z0FZ Bathing/Showering Techniques Treatment using Assistive, Adaptive, Supportive or Protective Equipment (ICD-10-PCS; 2017-06-03)
PROC: F08Z1FZ Dressing Techniques Treatment using Assistive, Adaptive, Supportive or Protective Equipment (ICD-10-PCS; 2017-06-03)
DX: Z48.3 Aftercare following surgery for neoplasm (principal); G40.802 Other epilepsy, not intractable, without status epilepticus; D64.9 Anemia, unspecified; H54.7 Unspecified visual loss; Z74.09 Other reduced mobility; D72.829 Elevated white blood cell count, unspecified; F06.31 Mood disorder due to known physiological condition with depressive features; Z85.841 Personal history of malignant neoplasm of brain
CPT/HCPCS: 80048; 80053; 81001; 85025; 86803; 87081; 87086; 87340; 90686; 92507; 92523; 97110; 97112; 97116; 97150; 97163; 97167; 97530; 97535